=== PATIENT | male | born 1960 | race Caucasian/White ===

== ENCOUNTER → 2017-08-10 | Outpatient (CLI) | payer BC ==
[~2017-08-10] MED LIST: ASPI-9 PO; ATOR20TA66 PO; CALC500T7 PO; LEVOTHYROXINE PO; METO-333 PO; NF-ESOM40C PO; TESTOSTERONE TOP
[2017-08-10 10:20] LABS: ALBUMIN 3.9 GM/DL (3.2-4.5); BILIRUBIN,TOTAL 0.7 MG/DL (0.1-1.0); CALCIUM 9.4 MG/DL (8.5-10.1); CREATININE SERUM 1.46 MG/DL (0.60-1.30); POTASSIUM 4.4 MMOL/L (3.6-5.0); TOTAL PROTEIN 6.7 GM/DL (6.4-8.2)
== END ==
LOC: CARD 08:54
PROVIDERS: ATTEND Internal Medicine Cardiovascular Disease
DX: I25.10 Atherosclerotic heart disease of native coronary artery without angina pectoris (principal); E78.2 Mixed hyperlipidemia; I48.92 Unspecified atrial flutter; I21.4 Non-ST elevation (NSTEMI) myocardial infarction; I34.0 Nonrheumatic mitral (valve) insufficiency
CPT/HCPCS: 36415; 80053; 80061; 84443; 93306

== ENCOUNTER 2018-05-02 06:34 | Observation (INO) | payer BC ==
[~2018-05-02] VITALS: Ht 195.6 cm; Wt 109.3 kg
--- OUTSIDE RECORDS SUMMARY | 2018-05-02 06:39 | XMS REPORT | Continuity of Care Document ---
Author Author [facility] Organization [facility] Address Unknown Phone Unavailable Allergies Active Description Code Type Severity Reaction Onset Reported/Identified Relationship to Patient Clinical Status Yes No Known Drug Allergies [id number] Drug Allergy Mild N/A 10/02/2009 Medications There is no data. Problems Date Dx Coded Attending Type Code Diagnosis Diagnosed By 05/23/2011 Ot 530.85 05/23/2011 Ot 535.40 05/23/2011 Ot 553.3 05/23/2011 Ot V76.51 07/18/2012 Ot 238.4 07/07/2014 SUNNI PEDROZA, JAYLON Paige Ot 238.4 07/07/2014 EMY PEDROZA, ERI Steward Ot 238.4 07/07/2014 EMY PEDROZA, ERI Steward Ot 244.9 07/07/2014 EMY PEDROZA, ERI Steward Ot 257.2 07/07/2014 EMY PEDROZA, ERI Steward Ot 401.9 07/07/2014 EMY PEDROZA, ERI Steward Ot 410.71 07/07/2014 EMY PEDROZA, ERI Steward Ot 414.01 07/07/2014 EMY PEDROZA, ERI Steward Ot 530.81 07/07/2014 EMY PEDROZA, ERI Steward Ot 593.9 07/07/2014 EMY PEDROZA, ERI Steward Ot V10.47 07/07/2014 EMY PEDROZA, ERI Steward Ot V87.41 08/19/2014 Ot 511.9 08/19/2014 Ot 518.0 08/19/2014 Ot 786.05 08/19/2014 OTHER, UNLISTED Ot V58.61 08/19/2014 OTHER, UNLISTED Ot V58.83 08/19/2014 SUNNI PEDROZA, JAYLON Paige Ot 238.4 08/21/2014 Ot 511.9 08/21/2014 Ot 793.19 08/21/2014 Ot V45.89 08/25/2014 OTHER, UNLISTED Ot V58.61 08/25/2014 OTHER, UNLISTED Ot V58.83 08/25/2014 SUNNI PEDROZA, JAYLON D Ot 238.4 08/26/2014 SHEMAR PEDROZA, JUDITH Caban Ot V45.81 08/26/2014 SHEMAR PEDROZA, JUDITH J Ot V57.89 08/27/2014 SHEMAR PEDROZA, JUDITH J Ot V45.81 08/27/2014 SHEMAR PEDROZA, JUDITH J Ot V57.89 08/29/2014 OTHER, UNLISTED Ot V58.61 08/29/2014 OTHER, UNLISTED Ot V58.83 08/29/2014 Ot 511.9 08/29/2014 Ot 793.19 08/29/2014 Ot V45.89 11/24/2014 SHEMAR PEDROZA, JUDITH Caban Ot 427.32 11/29/2014 SHEMAR PEDROZA, JUDITH Caban Ot 272.4 11/29/2014 SHEMAR PEDROZA, JUDITH Caban Ot 414.00 11/29/2014 SHEMAR PEDROZA, JUDITH Caban Ot 427.32 11/29/2014 SHEMAR PEDROZA, JUDITH J Ot 585.9 11/29/2014 SHEMAR PEDROZA, JUDITH J Ot 272.4 11/29/2014 SHEMAR PEDROZA, JUDITH Caban Ot 410.70 11/29/2014 SHEMAR PEDROZA, JUDITH Caban Ot 414.00 11/29/2014 SHEMAR PEDROZA, JUDITH J Ot 427.32 11/29/2014 SHEMAR PEDROZA, JUDITH J Ot 585.9 12/15/2014 SHEMAR PEDROZA, JUDITH J Ot 427.32 12/15/2014 SHEMAR PEDROZA, JUDITH J Ot 427.32 12/16/2014 SHEMAR PEDROZA, JUDITH J Ot 427.32 12/16/2014 SHEMAR PEDROZA, ZACARIASHAR J Ot 427.32 12/16/2014 SHEMAR PEDROZA, JUDITH J Ot 427.32 01/20/2015 SHEMAR PEDROZA, JUDITH J Ot 427.32 02/23/2015 SHEMAR PEDROZA, JUDITH Caban Ot 272.4 02/23/2015 SHEMAR PEDROZA, JUDITH J Ot 305.1 02/23/2015 SHEMAR PEDROZA, JUDITH Caban Ot 410.70 02/23/2015 SHEMAR PEDROZA, JUDITH J Ot 427.32 03/15/2015 SHEMAR PEDROZA, JUDITH J Ot 427.32 ATRIAL FLUTTER 04/01/2015 JUDITH STATON MD Ot 272.4 HYPERLIPIDEMIA NEC/NOS 04/01/2015 JUDITH STATON MD Ot 305.1 TOBACCO USE DISORDER 04/01/2015 JUDITH STATON MD Ot 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,SUBENDO INFARCT,EPISO 04/01/2015 JUDITH STATON MD Ot 427.32 ATRIAL FLUTTER 05/01/2015 EARL JONSE MD Ot K21.9 GASTRO-ESOPHAGEAL REFLUX DISEASE WITHOUT 05/01/2015 EARL JONES MD Ot 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 05/01/2015 EARL JONES MD Ot K31.7 POLYP OF STOMACH AND DUODENUM 05/01/2015 EARL JONES MD Ot K44.9 DIAPHRAGMATIC HERNIA WITHOUT OBSTRUCTION 09/24/2015 Ot 511.9 09/24/2015 Ot 793.19 09/24/2015 Ot V45.89 09/24/2015 JUDITH STATON MD Ot 427.32 09/24/2015 EARL JONES MD Ot Z01.818 10/06/2015 JUDITH STATON MD Ot E78.4 10/06/2015 JUDITH STATON MD Ot F17.200 10/06/2015 JUDITH STATON MD Ot I25.10 10/06/2015 JUDITH STATON MD Ot I48.92 11/12/2015 JUDITH STATON MD Ot E78.4 OTHER HYPERLIPIDEMIA 11/12/2015 JUDITH STATON MD Ot F17.200 NICOTINE DEPENDENCE, UNSPECIFIED, UNCOMP 11/12/2015 JUDITH STATON MD Ot I25.10 ATHSCL HEART DISEASE OF [place] CORONARY 11/12/2015 JUDITH STATON MD Ot I48.92 UNSPECIFIED ATRIAL FLUTTER 05/18/2016 JUDITH STATON MD Ot E78.4 OTHER HYPERLIPIDEMIA 05/18/2016 JUDITH STATON MD Ot F17.200 NICOTINE DEPENDENCE, UNSPECIFIED, UNCOMP 05/18/2016 JUDITH STATON MD Ot I25.10 ATHSCL HEART DISEASE OF [place] CORONARY 05/18/2016 JUDITH STATON MD Ot I48.92 UNSPECIFIED ATRIAL FLUTTER 05/19/2016 JUDITH STATON MD Ot E78.4 OTHER HYPERLIPIDEMIA 05/19/2016 JUDITH STATON MD Ot F17.200 NICOTINE DEPENDENCE, UNSPECIFIED, UNCOMP 05/19/2016 JUDITH STATON MD Ot I21.4 NON-ST ELEVATION (NSTEMI) MYOCARDIAL INF 05/19/2016 JUDITH STATON MD Ot I31.3 PERICARDIAL EFFUSION (NONINFLAMMATORY) 05/19/2016 JUDITH STATON MD Ot I48.92 UNSPECIFIED ATRIAL FLUTTER 05/19/2016 JUDITH STATON MD Ot E78.4 OTHER HYPERLIPIDEMIA 05/19/2016 JUDITH STATON MD Ot F17.200 NICOTINE DEPENDENCE, UNSPECIFIED, UNCOMP 05/19/2016 JUDITH STATON MD Ot I21.4 NON-ST ELEVATION (NSTEMI) MYOCARDIAL INF 05/19/2016 JUDITH STATON MD Ot I31.3 PERICARDIAL EFFUSION (NONINFLAMMATORY) 05/19/2016 JUDITH STATON MD Ot I48.92 UNSPECIFIED ATRIAL FLUTTER 06/01/2016 JUDITH STATON MD Ot E78.4 OTHER HYPERLIPIDEMIA 06/01/2016 JUDITH STATON MD Ot F17.200 NICOTINE DEPENDENCE, UNSPECIFIED, UNCOMP 06/01/2016 JUDITH STATON MD Ot I21.4 NON-ST ELEVATION (NSTEMI) MYOCARDIAL INF 06/01/2016 JUDITH STATON MD Ot I31.3 PERICARDIAL EFFUSION (NONINFLAMMATORY) 06/01/2016 JUDITH STATON MD Ot I48.92 UNSPECIFIED ATRIAL FLUTTER 06/15/2016 JUDITH STATON MD Ot E78.4 OTHER HYPERLIPIDEMIA 06/15/2016 JUDITH STATON MD Ot F17.200 NICOTINE DEPENDENCE, UNSPECIFIED, UNCOMP 06/15/2016 JUDITH STATON MD Ot I25.10 ATHSCL HEART DISEASE OF [place] CORONARY 06/15/2016 JUDITH STATON MD Ot I48.92 UNSPECIFIED ATRIAL FLUTTER 06/15/2016 JUDITH STATON MD Ot E78.4 OTHER HYPERLIPIDEMIA 06/15/2016 JUDITH STATON MD Ot F17.200 NICOTINE DEPENDENCE, UNSPECIFIED, UNCOMP 06/15/2016 JUDITH STATON MD Ot I21.4 NON-ST ELEVATION (NSTEMI) MYOCARDIAL INF 06/15/2016 JUDITH STATON MD Ot I31.3 PERICARDIAL EFFUSION (NONINFLAMMATORY) 06/15/2016 JUDITH STATON MD Ot I48.92 UNSPECIFIED ATRIAL FLUTTER 06/15/2016 JUDITH STATON MD Ot E78.4 OTHER HYPERLIPIDEMIA 06/15/2016 JUDITH STATON MD Ot F17.200 NICOTINE DEPENDENCE, UNSPECIFIED, UNCOMP 06/15/2016 JUDITH STATON MD Ot I25.10 ATHSCL HEART DISEASE OF [place] CORONARY 06/15/2016 JUDITH STATON MD Ot I48.92 UNSPECIFIED ATRIAL FLUTTER 06/16/2016 JUDITH STATON MD Ot E78.4 OTHER HYPERLIPIDEMIA 06/16/2016 JUDITH STATON MD Ot F17.200 NICOTINE DEPENDENCE, UNSPECIFIED, UNCOMP 06/16/2016 JUDITH STATON MD Ot I25.10 ATHSCL HEART DISEASE OF [place] CORONARY 06/16/2016 JUDITH STATON MD Ot I48.92 UNSPECIFIED ATRIAL FLUTTER 06/16/2016 JUDITH STATON MD Ot E78.4 OTHER HYPERLIPIDEMIA 06/16/2016 JUDITH STATON MD Ot F17.200 NICOTINE DEPENDENCE, UNSPECIFIED, UNCOMP 06/16/2016 JUDITH STATON MD Ot I21.4 NON-ST ELEVATION (NSTEMI) MYOCARDIAL INF 06/16/2016 JUDITH STATON MD Ot I31.3 PERICARDIAL EFFUSION (NONINFLAMMATORY) 06/16/2016 JUDITH STATON MD Ot I48.92 UNSPECIFIED ATRIAL FLUTTER 06/16/2016 Ot 511.9 PLEURAL EFFUSION NOS 06/16/2016 Ot 793.19 OTHER NONSPECIFIC ABNORMAL FINDING OF [place] 06/16/2016 Ot V45.89 POSTSURGICAL STATES NEC 06/16/2016 JUDITH STATON MD Ot 427.32 06/16/2016 ROBERT PEDROZA, EARL Paige Ot Z01.818 ENCOUNTER FOR OTHER PREPROCEDURAL EXAMIN 06/16/2016 JUDITH STATON MD Ot E78.4 OTHER HYPERLIPIDEMIA 06/16/2016 JUDITH STATON MD Ot F17.200 NICOTINE DEPENDENCE, UNSPECIFIED, UNCOMP 06/16/2016 JUDITH STATON MD Ot I21.4 NON-ST ELEVATION (NSTEMI) MYOCARDIAL INF 06/16/2016 JUDITH STATON MD Ot I31.3 PERICARDIAL EFFUSION (NONINFLAMMATORY) 06/16/2016 JUDITH STATON MD Ot I48.92 UNSPECIFIED ATRIAL FLUTTER 06/29/2016 JUDITH STATON MD Ot E78.4 OTHER HYPERLIPIDEMIA 06/29/2016 JUDITH STATON MD Ot F17.200 NICOTINE DEPENDENCE, UNSPECIFIED, UNCOMP 06/29/2016 JUDITH STATON MD Ot I21.4 NON-ST ELEVATION (NSTEMI) MYOCARDIAL INF 06/29/2016 JUDITH STATON MD Ot I31.3 PERICARDIAL EFFUSION (NONINFLAMMATORY) 06/29/2016 JUDITH STATON MD Ot I48.92 UNSPECIFIED ATRIAL FLUTTER 08/03/2017 Ot 511.9 PLEURAL EFFUSION NOS 08/03/2017 Ot 793.19 OTHER NONSPECIFIC ABNORMAL FINDING OF [place] 08/03/2017 Ot V45.89 POSTSURGICAL STATES NEC 08/03/2017 JUDITH STATON MD Ot 427.32 08/03/2017 ROBERT PEDROZA, EARL Paige Ot Z01.818 ENCOUNTER FOR OTHER PREPROCEDURAL EXAMIN 08/03/2017 JUDITH STATON MD Ot E78.4 OTHER HYPERLIPIDEMIA 08/03/2017 JUDITH STATON MD Ot F17.200 NICOTINE DEPENDENCE, UNSPECIFIED, UNCOMP 08/03/2017 JUDITH STATON MD Ot I21.4 NON-ST ELEVATION (NSTEMI) MYOCARDIAL INF 08/03/2017 JUDITH STATON MD Ot I31.3 PERICARDIAL EFFUSION (NONINFLAMMATORY) 08/03/2017 JUDITH STATON MD Ot I48.92 UNSPECIFIED ATRIAL FLUTTER 08/23/2017 JUDITH STATON MD Ot E78.2 MIXED HYPERLIPIDEMIA 08/23/2017 JUDITH STATON MD Ot I21.4 NON-ST ELEVATION (NSTEMI) MYOCARDIAL INF 08/23/2017 JUDITH STATON MD Ot I25.10 ATHSCL HEART DISEASE OF [place] CORONARY 08/23/2017 JUDITH STATON MD Ot I34.0 NONRHEUMATIC MITRAL (VALVE) INSUFFICIENC 08/23/2017 JUDITH STATON MD Ot I48.92 UNSPECIFIED ATRIAL FLUTTER 12/12/2017 JUDITH STATON MD, Ot E78.2 MIXED HYPERLIPIDEMIA 12/12/2017 JUDITH STATON MD Ot I21.4 NON-ST ELEVATION (NSTEMI) MYOCARDIAL INF 12/12/2017 JUDITH STATON MD Ot I25.10 ATHSCL HEART DISEASE OF [place] CORONARY 12/12/2017 JUDITH STATON MD Ot I34.0 NONRHEUMATIC MITRAL (VALVE) INSUFFICIENC 12/12/2017 JUDITH STATON MD, Ot I48.92 UNSPECIFIED ATRIAL FLUTTER 12/12/2017 JUDITH STATON MD, Ot E78.2 MIXED HYPERLIPIDEMIA 12/12/2017 JUDITH STATON MD Ot I21.4 NON-ST ELEVATION (NSTEMI) MYOCARDIAL INF 12/12/2017 JUDITH STATON MD Ot I25.10 ATHSCL HEART DISEASE OF [place] CORONARY 12/12/2017 JUDITH STATON MD Ot I34.0 NONRHEUMATIC MITRAL (VALVE) INSUFFICIENC 12/12/2017 JUDITH STATON MD, Ot I48.92 UNSPECIFIED ATRIAL FLUTTER Procedures There is no data. Results Test Result Range Comprehensive metabolic panel - 08/10/17 09:59 Serum or plasma sodium measurement (moles/volume) 140 mmol/L 135-145 Serum or plasma potassium measurement (moles/volume) 4.4 mmol/L 3.6-5.0 Serum or plasma chloride measurement (moles/volume) 105 mmol/L 98-107 Carbon dioxide 27 mmol/L 21-32 Serum or plasma anion gap determination (moles/volume) 8 mmol/L 5-14 Serum or plasma urea nitrogen measurement (mass/volume) 17 mg/dL 7-18 Serum or plasma creatinine measurement (mass/volume) 1.46 mg/dL 0.60-1.30 Serum or plasma urea nitrogen/creatinine mass ratio 12 NRG Serum or plasma creatinine measurement with calculation of estimated glomerular filtration rate 50 NRG Serum or plasma glucose measurement (mass/volume) 104 mg/dL 70-105 Serum or plasma calcium measurement (mass/volume) 9.4 mg/dL 8.5-10.1 Serum or plasma total bilirubin measurement (mass/volume) 0.7 mg/dL 0.1-1.0 Serum or plasma alkaline phosphatase measurement (enzymatic activity/volume) 51 U/L 40-136 Serum or plasma aspartate aminotransferase measurement (enzymatic activity/ volume) 24 U/L 5-34 Serum or plasma alanine aminotransferase measurement (enzymatic activity/volume ) 22 U/L 0-55 Serum or plasma protein measurement (mass/volume) 6.7 g/dL 6.4-8.2 Serum or plasma albumin measurement (mass/volume) 3.9 g/dL 3.2-4.5 Lipid 1996 panel - 08/10/17 09:59 Serum or plasma triglyceride measurement (mass/volume) 143 mg/dL <150 Serum or plasma cholesterol measurement (mass/volume) 235 mg/dL < 200 Serum or plasma cholesterol in HDL measurement (mass/volume) 37 mg/ dL 40-60 Cholesterol in LDL [mass/volume] in serum or plasma by direct assay 181 mg/dL 1-129 Serum or plasma cholesterol in VLDL measurement (mass/volume) 29 mg/ dL 5-40 THYROID STIMULATING HORMONE - 08/10/17 09:59 THYROID STIMULATING HORMONE 1.63 u[iU]/mL 0.35-4.94 Encounters ACCT No. Visit Date/Time Discharge Status Pt. Type Provider Facility Loc./Unit Complaint [id number] 08/10/2017 08:54:00 08/10/2017 23:59:59 CLS Outpatient JUDITH STATON MD [facility] CARD I25.10,E78.2,I48.92, I21.4 [id number] 06/16/2016 09:09:00 06/16/2016 23:59:59 CLS Outpatient JUDITH STATON MD [facility] LAB ATRIAL FLUTTER, HYPERLIPIDEMIA [id number] 05/18/2016 12:22:00 05/18/2016 23:59:59 CLS Outpatient JUDITH STATON MD [facility] CARD ATRIAL FLUTTER,HLP, PERICARDIAL EFFUSION [id number] 09/24/2015 07:53:00 09/24/2015 23:59:59 CLS Outpatient JUDITH STATON MD [facility] CARD CAD,AFLUTTER, HLP, TOBACCO USE [id number] 05/01/2015 07:33:00 05/01/2015 09:30:00 DIS Outpatient EARL JONES MD [facility] BARRETTS ESOPHAGUS [id number] 04/30/2015 05:51:00 04/30/2015 23:59:59 CLS Outpatient EARL JONES MD [facility] PREOP BARRETTS ESOPHAGUS [id number] 02/19/2015 09:57:00 04/01/2015 00:01:00 DIS Outpatient JUDITH STATON MD [facility] CARD AFIB,NONSTEMI [id number] 03/16/2015 00:09:00 03/16/2015 23:59:59 CLS Preadmit JUDITH STATON MD [facility] LAB ATRIAL FLUTTER [id number] 01/15/2015 08:46:00 03/15/2015 00:01:00 DIS Outpatient JUDITH STATON MD [facility] LAB ATRIAL FLUTTER [id number] 11/20/2014 10:41:00 11/24/2014 00:01:00 DIS Outpatient JUDITH STATON MD [facility] LAB [id number] 11/05/2014 13:42:00 11/05/2014 23:59:59 CLS Outpatient JUDITH STATON MD [facility] CARD [id number] 10/27/2014 10:19:00 10/27/2014 23:59:59 CLS Outpatient JUDITH STATON MD [facility] LAB [id number] 10/15/2014 11:45:00 10/17/2014 12:22:00 DIS Outpatient JUDITH STATON MD [facility] [id number] 08/14/2014 13:32:00 08/14/2014 23:59:59 CLS Outpatient OTHER, UNLISTED [facility] [id number] 07/07/2014 15:45:00 07/07/2014 16:53:00 DIS Inpatient ERI QUEVEDO MD [facility] ICU [id number] 11/07/2012 12:28:00 11/07/2012 23:59:59 CLS Outpatient JAYLON MOELLER MD [facility] [id number] 08/26/2014 10:18:00 Document Registration [id number] 08/20/2014 09:04:00 Document Registration [id number] 08/19/2014 18:54:00 Document Registration [id number] 08/19/2014 16:06:00 Document Registration [id number] 07/07/2014 14:00:00 Document Registration [id number] 07/18/2012 13:57:00 Document Registration [id number] 05/23/2011 07:00:00 Document Registration
[2018-05-02] MEDS ORDERED: KETOROLAC 30 MG/ML VIAL IVP STA (06:58)
--- NOTE | 2018-05-02 07:12 | ED General ---
General Chief Complaint: Upper Extremity Stated Complaint: RT ARM PAIN Nursing Triage Note: AMBULATORY TO ED WITH C/O RIGHT ARM PAIN FOR APPROX 1 MONTH. DESCRIBES SHARP WITH NUMBNESS AND TINGLING FROM SHOULDER DOWN TO HAND. Nursing Sepsis Screen: No Definite Risk Source of Information: Patient, Family Exam Limitations: No Limitations History of Present Illness Date Seen by Provider: May 02, 2018 Time Seen by Provider: 06:39 Initial Comments Here with report of pain to the right arm and shoulder with tingling down to his hand. States that this has been intermittent for the last month but significantly worse today. Does report that the pain seems to be exacerbated by neck position and movement. Also has some pain to his right calf with some swelling of the leg on the right. He states the swelling will come and go sometimes as this is where he had pain prescription for his quadruple bypass. That occurred a few years ago after a heart attack. Otherwise healthy and fairly active. Did report canoeing this weekend and did not have problems with paddling. He is an telephonic nurse. Denies weakness in his hands currently but does feel like he has lost strength especially with abduction and external rotation of the arm on the right. States when his hand and arm goes numb that it is the whole arm and cannot localize it to medial or lateral aspect or dorsal or palmar aspect. Timing/Duration: Constant (this morning), Getting Worse (over the last month), Intermittent (over the last month) Severity: Moderate Associated Systoms: No Chest Pain, No Cough, No Diaphoresis, No Fever/Chills, No Nausea/Vomiting, No Shortness of Air; Weakness Allergies and Home Medications Allergies Coded Allergies: No Known Drug Allergies (Unverified , 10/02/09) Home Medications Aspirin/Calcium Carbonate/Mag 325 Mg Tablet, 325 MG PO DAILY, (Reported) Atorvastatin Calcium 20 Mg Tablet, 20 MG PO BID, (Reported) Calcium Carbonate Unknown Strength Tab.chew, 200 MG PO PRN, (Reported) Esomeprazole Mag Trihydrate 40 Mg Capsule.dr, 40 MG PO HS, (Reported) Methylprednisolone 4 Mg Tab.ds.pk, 4 MG PO UD PER DOSE PACK INSTRUCTIONS Prescribed by: BRAXTON ORR on 05/02/18 1139 Metoprolol Tartrate 25 Mg Tablet, 6 MG PO BID, (Reported) [Levothyroxine] , 88 MCG PO HS, (Reported) [Testosterone] , TOP Q DAY, (Reported) Patient Home Medication List Home Medication List Reviewed: Yes Review of Systems Review of Systems Constitutional: see HPI; No chills, No fever EENTM: no symptoms reported Respiratory: No short of breath, No wheezing Cardiovascular: No chest pain; edema, Hx of Intervention; No palpitations Gastrointestinal: No abdominal pain, No nausea, No vomiting Genitourinary: no symptoms reported Musculoskeletal: see HPI, joint pain, muscle pain, muscle weakness, neck pain Skin: no symptoms reported Psychiatric/Neurological: See HPI, Numbness, Tingling, Weakness All Other Systems Reviewed Negative Unless Noted: Yes Past Kkosyks-Ghcqxy-Rwugzp Hx Past Med/Social Hx: Reviewed Nursing Past Med/Soc Hx Patient Social History Alcohol Use: Denies Use Recreational Drug Use: No Smoking Status: Never a Smoker Recent Foreign Travel: No Contact w/Someone Who Travel: No Recent Infectious Disease Expo: No Recent Hopitalizations: No Immunizations Up To Date Tetanus Booster (TDap): Unknown Seasonal Allergies Seasonal Allergies: No Past Medical History Surgeries: Yes (CARDIOVERSION, PERICARDIAL WINDOW, THORACENTESIS) Cardiac, CABG Respiratory: No Cardiac: Yes Coronary Artery Disease, Heart Attack, High Cholesterol Neurological: No Neuropathy Reproductive Disorders: No Gastrointestinal: Yes Gastroesophageal Reflux, Chronic Constipation Musculoskeletal: No Endocrine: Yes Hypothyroidsim Cancer: Yes Testicular Psychosocial: No Integumentary: No Blood Disorders: No Family Medical History Reviewed Nursing Family Hx No Pertinent Family Hx Physical Exam Vital Signs Vital Signs - First Documented 05/02/18 06:39 Pulse 66 Resp 17 B/P (MAP) 171/125 (140) Capillary Refill : Less Than 3 Seconds Height, Weight, BMI Height: 6'5.00" Weight: 241lbs. 0.0oz. [id number]; 28.6 BMI Method:Stated General Appearance: WD/WN, Mild Distress HEENT: PERRL/EOMI, Pharynx Normal Neck: Limited Range of Motion (extension increases pain.), Tender Lateral, Other (pain improved with head in the forward flexion, head down position. Pain exacerbated by head and neck rearward position. Axial loading does increase pain somewhat.) Respiratory: Lungs Clear, Normal Breath Sounds Cardiovascular: Regular Rate, Rhythm, No Murmur Gastrointestinal: Non Tender, Soft Back: Normal Inspection, No CVA Tenderness, No Vertebral Tenderness Extremity: Normal Range of Motion, Non Tender, Calf Tenderness (mild right posterior where vein stripping was from CABG), Pedal Edema (1+ edema to the right lower extremity), Other (normal range of motion of bilateral upper extremities and hands with equal strength bilateral) Neurologic/Psychiatric: Alert, Oriented x3, No Motor/Sensory Deficits, Other ( 5 out of 5 strength to bilateral upper extremities including window and door installer strength, push and pull.) Skin: Normal Color, Warm/Dry Progress/Results/Core Measures Suspected Sepsis Recent Fever Within 48 Hours: No Infection Criteria Present: None New/Unexplained Altered Menta: No Sepsis Screen: No Definite Risk SIRS Temperature: Pulse: 66 Respiratory Rate: 17 Laboratory Tests 05/02/18 07:10: White Blood Count 6.1 Blood Pressure 171 /125 Mean: 140 Laboratory Tests 05/02/18 07:10: Creatinine 1.32H, INR Comment 1.0, Platelet Count 175, Total Bilirubin 0.6 Results/Orders Lab Results Laboratory Tests Test 05/02/18 07:10 05/02/18 09:36 05/02/18 09:46 Range/Units White Blood Count 6.1 4.3-11.0 10^3/uL Red Blood Count 5.23 4.35-5.85 10^6/uL Hemoglobin 16.1 13.3-17.7 G/DL Hematocrit 47 40-54 % Mean Corpuscular Volume 90 80-99 FL Mean Corpuscular Hemoglobin 31 25-34 PG Mean Corpuscular Hemoglobin Concent 34 32-36 G/DL Red Cell Distribution Width 13.3 10.0-14.5 % Platelet Count 175 130-400 10^3/uL Mean Platelet Volume 10.1 7.4-10.4 FL Neutrophils (%) (Auto) 59 42-75 % Lymphocytes (%) (Auto) 29 12-44 % Monocytes (%) (Auto) 9 0-12 % Eosinophils (%) (Auto) 3 0-10 % Basophils (%) (Auto) 1 0-10 % Neutrophils # (Auto) 3.6 1.8-7.8 X 10^3 Lymphocytes # (Auto) 1.8 1.0-4.0 X 10^3 Monocytes # (Auto) 0.5 0.0-1.0 X 10^3 Eosinophils # (Auto) 0.2 0.0-0.3 10^3/uL Basophils # (Auto) 0.0 0.0-0.1 10^3/uL Prothrombin Time 13.0 12.2-14.7 SEC INR Comment 1.0 0.8-1.4 Activated Partial Thromboplast Time 25 24-35 SEC D-Dimer 0.43 0.00-0.49 UG/ML Sodium Level 141 135-145 MMOL/L Potassium Level 4.2 3.6-5.0 MMOL/L Chloride Level 109 H 98-107 MMOL/L Carbon Dioxide Level 23 21-32 MMOL/L Anion Gap 9 5-14 MMOL/L Blood Urea Nitrogen 21 H 7-18 MG/DL Creatinine 1.32 H 0.60-1.30 MG/DL Estimat Glomerular Filtration Rate 56 BUN/Creatinine Ratio 16 Glucose Level 115 H 70-105 MG/DL Calcium Level 9.1 8.5-10.1 MG/DL Corrected Calcium 9.0 8.5-10.1 MG/DL Magnesium Level 2.1 1.8-2.4 MG/DL Total Bilirubin 0.6 0.1-1.0 MG/DL Aspartate Amino Transf (AST/SGOT) 34 5-34 U/L Alanine Aminotransferase (ALT/SGPT) 35 0-55 U/L Alkaline Phosphatase 51 40-136 U/L Myoglobin 217.8 H 337.4 H 10.0-92.0 NG/ML Troponin I < 0.30 < 0.30 <0.30 NG/ML Total Protein 6.7 6.4-8.2 GM/DL Albumin 4.1 3.2-4.5 GM/DL Total Creatine Kinase 407 H 30-200 U/L My Orders Orders - BRAXTON ORR MD Cbc With Automated Diff (05/02/18 06:58) Magnesium (05/02/18 06:58) Chest 1 View, Ap/Pa Only (05/02/18 06:58) Ekg Tracing (05/02/18 06:58) Cardiac Profile 1 (05/02/18 06:58) Comprehensive Metabolic Panel (05/02/18 06:58) Myoglobin Serum (05/02/18 06:58) Protime With Inr (05/02/18 06:58) Partial Thromboplastin Time (05/02/18 06:58) O2 (05/02/18 06:58) Monitor-Rhythm Ecg Trace Only (05/02/18 06:58) Lipid Panel (05/03/18 06:00) Saline Lock/Iv-Start (05/02/18 06:58) Fibrin Degradation Products (05/02/18 06:58) Ct Cervical Spine Wo (05/02/18 06:58) Ketorolac Injection (Toradol Injection) (05/02/18 06:58) Saline Lock/Iv-Start (05/02/18 07:56) Ns Iv 1000 Ml (Sodium Chloride 0.9%) (05/02/18 07:56) Fentanyl Injection (Sublimaze Injection (05/02/18 08:14) Dexamethasone Injection (Decadron Inject (05/02/18 08:15) Mri Cervical Spine W/O Contras (05/02/18 08:25) Troponin I (05/02/18 09:24) Myoglobin Serum (05/02/18 09:24) Saline Lock/Iv-Start (05/02/18 11:10) Ns Iv 1000 Ml (Sodium Chloride 0.9%) (05/02/18 11:10) Creatine Kinase (05/02/18 11:10) Lisinopril Tablet (Zestril Tablet) (05/02/18 11:15) Prednisone Tablet (Deltasone Tablet) (05/02/18 11:30) Medications Given in ED Current Medications Medications Dose Ordered Sig/Peyton Route Start Time Stop Time Status Last Admin Dose Admin Dexamethasone Sodium Phosphate 10 mg ONCE ONCE IV 05/02/18 08:15 05/02/18 08:16 DC 05/02/18 08:19 10 MG Lisinopril 10 mg ONCE ONCE PO 05/02/18 11:15 05/02/18 11:16 DC 05/02/18 11:27 10 MG Sodium Chloride 1,000 ml @ 0 mls/hr Q0M ONCE IV 05/02/18 07:56 05/02/18 07:57 DC 05/02/18 08:02 1,000 MLS/HR Sodium Chloride 1,000 ml @ 0 mls/hr Q0M ONCE IV 05/02/18 11:10 05/02/18 11:12 DC 05/02/18 12:02 1,000 MLS/HR Vital Signs/I&O 05/02/18 06:39 Pulse 66 Resp 17 B/P (MAP) 171/125 (140) Capillary Refill : Less Than 3 Seconds Blood Pressure Mean: 140 Progress Note : Progress Note Seen and evaluated. IV, labs, EKG and chest x-ray ordered. Patient has complicated history with previous heart attack and multivessel bypass with right shoulder pain that seems to be intermittent. We will evaluate and rule out cardiac cause and I will add d-dimer to evaluate for possibility of blood clot. Pain seems to have radicular origin in the neck and we will get CT scan of the C-spine as well. Toradol 30 mg IV ordered. All of this was discussed with the patient and family who agree and does address their concerns as well. 0820: C-spine results noted. I did discuss the case with Dr. MUNGUIA due to concerns for radiculopathy. We discussed MRI and he states that that would be very beneficial given the CT findings. MRI C-spine without contrast ordered. Patient did receive fentanyl 50 g IV and Decadron 10 mg IV for pain and the fentanyl is definitely helping with the pain at this point. 0845: MRI did have opening and patient is going for evaluation now. Pending results. 0952: Results noted in discussed with the patient. We have ordered repeat troponin and myoglobin. I have discussed the case with Dr. MUNGUIA and he would like to see the patient in office at approximately 1 p.m. today down in [place]. Patient and family are in agreement with this. Dr. MUNGUIA was able to review the MRI and agrees that there are significant findings in the C5 through C7 level. 1104: Blood pressure has elevated and myoglobin is increasingly elevated. Unsure of the cause of elevated myoglobin. Patient is having less pain but decreased movement of the arm in the abduction motion. Due to the constellation of symptoms and findings, further evaluation and monitoring as well as hydration is appropriate. I did discuss the case with Dr. Sampson and he is recommending lisinopril 10 mg by mouth now and he will see the patient in consult. 1107: I did discuss the case with Dr. Moreno and she accepts patient for admission, observation status with Dr. Sampson on consult. I did rediscuss the case with Dr. MUNGUIA afterwards and he can see the patient on Monday if the patient is discharged from the hospital and does recommend the Medrol Dosepak to be continued outpatient. We will initiate prednisone currently and patient can take the Medrol Dosepak when discharged. Prednisone 40 mg by mouth ordered as well as lisinopril 10 mg by mouth. Admit, observation status. Patient and family agree with plan. ECG Initial ECG Impression Date: May 02, 2018 Initial ECG Impression Time: 06:59 Initial ECG Rate: 56 Initial ECG Rhythm: Normal Sinus Comment Sinus rhythm with first degree AV block. 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 This is unchanged from previous of 19 August 2004. No evidence of ST elevation VA. Normal axis. Interpreted by me. Diagnostic Imaging Diagonstic Imaging: Xray Plain Films/CT/US/NM/MRI: chest Comments VIA [facility], [place] NAME: MARTHA VALDEZ MED REC#: [id number] PT STATUS: REG ER : 1960 PHYSICIAN: BRAXTON ORR MD ADMIT DATE: 05/02/18/ER Draft Date of Exam:05/02/18 CHEST 1 VIEW, AP/PA ONLY INDICATION: Neck pain which radiates into the right upper extremity. PA view of the chest is obtained with comparison made to study of 08/26/2014. FINDINGS: Overall heart size and pulmonary vascularity are within normal limits. There is air trapping, bilaterally. No pneumothorax or consolidation is seen. There is no definite pleural fluid. Surgical changes are again noted in the mediastinum. Short tubular object projects over the upper left chest just below the clavicle similar to previous study. There is hypertrophy of the first sternocostal joints which limits evaluation of underlying lung. IMPRESSION: Air trapping is likely due to emphysema without evidence of acute abnormality seen in the thorax. If there is concern for upper lung pathology, apical lordotic view would be of use. Dictated on workstation # [id number] Dict: 05/02/18 0800 Trans: 05/02/18 0804 [id number] Interpreted by: PRANAV AGUAYO MD Electronically signed by: Reviewed: Reviewed by Me Diagonstic Imaging: CT Plain Films/CT/US/NM/MRI: c-spine Comments NAME: MARTHA VALDEZ MED REC#: [id number] PT STATUS: REG ER : 1960 PHYSICIAN: BRAXTON ORR MD ADMIT DATE: 05/02/18/ER Draft Date of Exam:05/02/18 CT CERVICAL SPINE WO INDICATION: Neck pain with right arm pain. CT cervical spine obtained with axial slices without contrast and sagittal and coronal reconstructions. There is no evidence of cervical spine fracture. There is no subluxation or malalignment. There is multilevel degenerative change. At C2-3, the canal and neuroforamina are widely patent. At C3-4, there is mild facet degenerative change. The canal and neuroforamina appear widely patent, however. At C4-5, there is prominent facet joint degenerative change on the left side with some left-sided neuroforaminal narrowing. There is no significant right-sided neuroforaminal narrowing or canal narrowing. At C5-C6, there is disc space narrowing and posterior osteophyte formation. There is mild bilateral neuroforamina narrowing without significant canal stenosis. At C6-7, there is posterior osteophyte formation and disc space narrowing. There is bilateral neuroforaminal narrowing, right greater than left, due to osteophyte formation. There does not appear to be significant canal stenosis. At C7-T1, the canal and neuroforamina are widely patent. IMPRESSION: Multilevel degenerative changes cervical spine as described above level by level. There is no acute fracture or subluxation. Degenerative findings are most prominent at the C5-6 and C6-7 levels as above. Dictated on workstation # [id number] Dict: 05/02/18 0759 Trans: 05/02/18 [id number] [id number] Interpreted by: SANDRA HENRY MD Electronically signed by: Reviewed: Reviewed by Me Diagonstic Imaging: MRI Plain Films/CT/US/NM/MRI: c-spine Comments NAME: MARTHA VALDEZ [facility] REC#: [id number] PT STATUS: REG ER : 1960 PHYSICIAN: BRAXTON ORR MD ADMIT DATE: 05/02/18/ER Draft Date of Exam:05/02/18 MRI CERVICAL SPINE W/O CONTRAS PROCEDURE: MR imaging cervical spine without contrast. TECHNIQUE: Multiplanar/multisequence MR imaging of the cervical spine was performed without contrast. INDICATION: Neck pain. Right arm pain, numbness, and tingling. Recent exacerbation. COMPARISON: CT cervical spine from earlier this same day. FINDINGS: Evaluation of the static alignment demonstrates slight grade 1 anterolisthesis of C4 on C5 and slight grade 1 retrolisthesis of C5 on C6. There is no evidence of jumped facets. The vertebral body heights are maintained. There is no evidence of acute fracture. There are degenerative changes, particularly involving the C5-6 and C6-C7 levels. There is associated Modic type II degenerative marrow type signal. Note is also made of multilevel intervertebral disc height loss. The cervical cord is unremarkable. There is no evidence of cord edema. No abnormal intrathecal filling defects are seen. The pre and paravertebral soft tissue structures are unremarkable. The included portions of the posterior fossa show no additional acute abnormalities. Axial images demonstrate the following: C2-C3: There is no large disc bulge or focal protrusion. There is no significant spinal canal or neuroforaminal stenosis. C3-C4: There is mild bilateral uncovertebral hypertrophy and slight broad-based posterior disc bulge. As a result, there is mild narrowing of the spinal canal and bilateral neuroforamen. C4-C5: There is bilateral uncovertebral hypertrophy. There appears to be subtle small central posterior disc protrusion. As a result, there is minimal narrowing of the spinal canal and mild narrowing of the bilateral neuroforamen. C6-C7: There is bilateral uncovertebral hypertrophy with broad-based posterior disc/osteophyte complex formation. There is also mild bilateral facet arthropathy and ligamentum flavum laxity. As a result, there is mild narrowing of the spinal canal. There is also moderate to severe narrowing of the right neuroforamen and moderate narrowing on the left. C6-C7: There is uncovertebral hypertrophy with a broad-based posterior disc bulge. There is also bilateral ligamentum flavum laxity. As a result, there is mild narrowing of the spinal canal. There is also moderate stenosis of the left neuroforamen and moderate to severe stenosis on the right. C7-T1: There is no large disc bulge or focal protrusion. There is no significant spinal canal or neuroforaminal stenosis. IMPRESSION: 1. Multilevel degenerative changes of the cervical spine, greatest at the C5-C6 and C6-C7 levels. 2. No acute fracture or dislocation. Dictated on workstation # [id number] Dict: 05/02/18928 Trans: 05/02/1838 [id number] Interpreted by: YANNI SWEENEY MD Electronically signed by: Departure Communication (Admissions) Time/Spoke to Admitting Phy: 11:07 Time/Spoke to Consulting Phy: 11:04 Impression Primary Impression: Cervical radiculopathy at C6 Additional Impressions: Cervical radiculopathy at C7 Cervical radiculopathy at C5 Uncontrolled hypertension Elevated myoglobin level Disposition: ADMITTED INPATIENT Condition: Stable Admissions Decision to Admit Reason: Admit from ER (General) Decision to Admit/Date: May 02, 2018 Time/Decision to Admit Time: 11:04 Departure-Patient Inst. Decision time for Depature: 10:16 Referrals: GEOFFREY MUNGUIA MD, RICK D MD (PCP/Family) Primary Care Physician Patient Instructions: Radiculopathy (DC) Add. Discharge Instructions: All discharge instructions reviewed with patient and/or family. Voiced understanding. Follow-up with Dr. Munguia today at 1 p.m. at the [facility]. Take medications as directed. Return for worse pain, weakness, numbness or other concerns as needed. Scripts Methylprednisolone (Medrol) 4 Mg Tab.ds.pk 4 MG PO UD for 6 Days, #21 PKG PER DOSE PACK INSTRUCTIONS Prov: BRAXTON ORR MD 05/02/18 Copy Copies To 1: JAYLON MOELLER MD Copies To 2: GEOFFREY MUNGUIA MD, TIMOTHY D MD May 02, 2018 07:12
[2018-05-02 07:16] LABS: BASOPHILS % (AUTO) 1 % (0-10); EOSINOPHILS # (AUTO) 0.2 10^3/uL (0.0-0.3); EOSINOPHILS % (AUTO) 3 % (0-10); HEMATOCRIT 47 % (40-54); HEMOGLOBIN 16.1 G/DL (13.3-17.7); LYMPHOCYTES # (AUTO) 1.8 X 10^3 (1.0-4.0); LYMPHOCYTES % (AUTO) 29 % (12-44); MEAN CORPUSCULAR HEMOGLOBIN 31 PG (25-34); MEAN CORPUSCULAR HGB CONC 34 G/DL (32-36); MEAN CORPUSCULAR VOLUME 90 FL (80-99); MEAN PLATELET VOLUME 10.1 FL (7.4-10.4); MONOCYTES # (AUTO) 0.5 X 10^3 (0.0-1.0); MONOCYTES % (AUTO) 9 % (0-12); NEUTROPHILS # (AUTO) 3.6 X 10^3 (1.8-7.8); NEUTROPHILS % (AUTO) 59 % (42-75); PLATELET COUNT 175 10^3/uL (130-400); RED BLOOD COUNT 5.23 10^6/uL (4.35-5.85); RED CELL DISTRIBUTION WIDTH 13.3 % (10.0-14.5); WHITE BLOOD COUNT 6.1 10^3/uL (4.3-11.0)
[2018-05-02 07:34] LABS: ALANINE AMINOTRANSFERASE 35 U/L (0-55); ALBUMIN 4.1 GM/DL (3.2-4.5); ALKALINE PHOSPHATASE 51 U/L (40-136); BILIRUBIN,TOTAL 0.6 MG/DL (0.1-1.0); BUN/CREATININE RATIO 16; CALCIUM 9.1 MG/DL (8.5-10.1); CARBON DIOXIDE 23 MMOL/L (21-32); CHLORIDE 109 MMOL/L (98-107); CREATININE SERUM 1.32 MG/DL (0.60-1.30); GFR ESTIMATED 56; GLUCOSE 115 MG/DL (70-105); MAGNESIUM 2.1 MG/DL (1.8-2.4); POTASSIUM 4.2 MMOL/L (3.6-5.0); SODIUM 141 MMOL/L (135-145); TOTAL PROTEIN 6.7 GM/DL (6.4-8.2)
[2018-05-02 07:41] LABS: MYOGLOBIN SERUM 217.8 NG/ML (10.0-92.0)
[2018-05-02] MEDS ORDERED: NS IV 1000 ML 1,000 ML IV ONE ×2 (07:56→11:10)
--- NOTE | 2018-05-02 08:04 | Diagnostic Imaging Report ---
INDICATION: Neck pain which radiates into the right upper extremity. PA view of the chest is obtained with comparison made to study of 08/26/2014. FINDINGS: Overall heart size and pulmonary vascularity are within normal limits. There is air trapping, bilaterally. No pneumothorax or consolidation is seen. There is no definite pleural fluid. Surgical changes are again noted in the mediastinum. Short tubular object projects over the upper left chest just below the clavicle similar to previous study. There is hypertrophy of the first sternocostal joints which limits evaluation of underlying lung. IMPRESSION: Air trapping is likely due to emphysema without evidence of acute abnormality seen in the thorax. If there is concern for upper lung pathology, apical lordotic view would be of use. Dictated by: Dictated on workstation # [id number]
--- NOTE | 2018-05-02 08:13 | Diagnostic Imaging Report ---
INDICATION: Neck pain with right arm pain. CT cervical spine obtained with axial slices without contrast and sagittal and coronal reconstructions. There is no evidence of cervical spine fracture. There is no subluxation or malalignment. There is multilevel degenerative change. At C2-3, the canal and neuroforamina are widely patent. At C3-4, there is mild facet degenerative change. The canal and neuroforamina appear widely patent, however. At C4-5, there is prominent facet joint degenerative change on the left side with some left-sided neuroforaminal narrowing. There is no significant right-sided neuroforaminal narrowing or canal narrowing. At C5-C6, there is disc space narrowing and posterior osteophyte formation. There is mild bilateral neuroforamina narrowing without significant canal stenosis. At C6-7, there is posterior osteophyte formation and disc space narrowing. There is bilateral neuroforaminal narrowing, right greater than left, due to osteophyte formation. There does not appear to be significant canal stenosis. At C7-T1, the canal and neuroforamina are widely patent. IMPRESSION: Multilevel degenerative changes cervical spine as described above level by level. There is no acute fracture or subluxation. Degenerative findings are most prominent at the C5-6 and C6-7 levels as above. Dictated by: Dictated on workstation # [id number]
[2018-05-02] MEDS ORDERED: fentaNYL INJECTION 100 MCG/2 ML AMP IVP STA (08:14)
[2018-05-02] MEDS ORDERED: DEXAMETHASONE 10 MG/ML (DECADRON) 1 ML VIAL IV ONE (08:15)
--- NOTE | 2018-05-02 09:39 | Diagnostic Imaging Report ---
PROCEDURE: MR imaging cervical spine without contrast. TECHNIQUE: Multiplanar/multisequence MR imaging of the cervical spine was performed without contrast. INDICATION: Neck pain. Right arm pain, numbness, and tingling. Recent exacerbation. COMPARISON: CT cervical spine from earlier this same day. FINDINGS: Evaluation of the static alignment demonstrates slight grade 1 anterolisthesis of C4 on C5 and slight grade 1 retrolisthesis of C5 on C6. There is no evidence of jumped facets. The vertebral body heights are maintained. There is no evidence of acute fracture. There are degenerative changes, particularly involving the C5-6 and C6-C7 levels. There is associated Modic type II degenerative marrow type signal. Note is also made of multilevel intervertebral disc height loss. The cervical cord is unremarkable. There is no evidence of cord edema. No abnormal intrathecal filling defects are seen. The pre and paravertebral soft tissue structures are unremarkable. The included portions of the posterior fossa show no additional acute abnormalities. Axial images demonstrate the following: C2-C3: There is no large disc bulge or focal protrusion. There is no significant spinal canal or neuroforaminal stenosis. C3-C4: There is mild bilateral uncovertebral hypertrophy and slight broad-based posterior disc bulge. As a result, there is mild narrowing of the spinal canal and bilateral neuroforamen. C4-C5: There is bilateral uncovertebral hypertrophy. There appears to be subtle small central posterior disc protrusion. As a result, there is minimal narrowing of the spinal canal and mild narrowing of the bilateral neuroforamen. C6-C7: There is bilateral uncovertebral hypertrophy with broad-based posterior disc/osteophyte complex formation. There is also mild bilateral facet arthropathy and ligamentum flavum laxity. As a result, there is mild narrowing of the spinal canal. There is also moderate to severe narrowing of the right neuroforamen and moderate narrowing on the left. C6-C7: There is uncovertebral hypertrophy with a broad-based posterior disc bulge. There is also bilateral ligamentum flavum laxity. As a result, there is mild narrowing of the spinal canal. There is also moderate stenosis of the left neuroforamen and moderate to severe stenosis on the right. C7-T1: There is no large disc bulge or focal protrusion. There is no significant spinal canal or neuroforaminal stenosis. IMPRESSION: 1. Multilevel degenerative changes of the cervical spine, greatest at the C5-C6 and C6-C7 levels. 2. No acute fracture or dislocation. Dictated by: Dictated on workstation # [id number]
[2018-05-02 10:19] LABS: MYOGLOBIN SERUM 337.4 NG/ML (10.0-92.0)
[2018-05-02] MEDS ORDERED: lisINopril 10 MG (PRINIVIL) TABLET PO ONE (11:15)
[2018-05-02] MEDS ORDERED: predniSONE 20 MG TAB PO ONE (11:30)
[2018-05-02] MEDS ORDERED: METH4TAB PO (11:39)
--- NOTE | 2018-05-02 11:58 | Consultation-Cardiology ---
HPI-Cardiology Cardiology Consultation Date of Consultation 05/02/18 Date of Admission Time Seen by Provider: 11:30 Indication: chest pain HPI Dr. Foley is a very pleasant 58 y/o male with history of CAD, HTN, HLP. Presented to the ER with morning with complaints of right sided neck, shoulder and arm pain. States pain began last night, was worse with movement and then became worse this morning. Rates pain 6-7/10, better after receiving pain medication. Denies any dyspnea, dizziness or lightheadedness. 58 years old gentleman with history of coronary artery disease, CABG, hypertension hyperlipidemia, has been having sharp pain in his right arm with numbness with certain movement of his neck. This morning had more significant right shoulder pain. Progressed to weakness in his right shoulder. Came into the emergency room, noted to have elevation in myoglobin. Denied any chest pain. No shortness of breath, fairly active. Home Medications & Allergies Allergies: Coded Allergies: No Known Drug Allergies (Unverified , 10/02/09) [id number] Hx Patient Social History Alcohol Use: Denies Use Recreational Drug Use: No Smoking Status: Never a Smoker Recent Foreign Travel: No Recent Infectious Disease Expo: No Recent Hopitalizations: No Immunizations Up To Date Tetanus Booster (TDap): Unknown Family Medical History Significant Family History: No Pertinent Family Hx Review of Systems Constitutional: no symptoms reported, see HPI EENTM: see HPI, no symptoms reported Respiratory: no symptoms reported, see HPI; No cough, No dyspnea on exertion, No hemoptysis, No orthopnea, No phlegm, No short of breath, No stridor, No wheezing, No other Cardiovascular: no symptoms reported, see HPI; No chest pain, No edema, No Hx of Intervention, No palpitations, No syncope, No vascular heart diseas, No other Gastrointestinal: no symptoms reported, see HPI Genitourinary: no symptoms reported, see HPI Musculoskeletal: see HPI, muscle weakness, neck pain Skin: no symptoms reported, see HPI Psychiatric/Neurological: No Symptoms Reported, See HPI Physical Exam Vital Signs Vital Signs - First Documented 05/02/18 05/02/18 06:39 12:00 Temp 96.9 Pulse 66 Resp 17 B/P (MAP) 171/125 (140) Pulse Ox 97 O2 Delivery Room Air Capillary Refill : Less Than 3 Seconds Height, Weight, BMI Height: 6'5.00" Weight: 241lbs. 0.0oz. [id number]; 28.6 BMI Method:Stated General Appearance: No Apparent Distress, WD/WN Eyes: Bilateral Eye Normal Inspection, Bilateral Eye PERRL, Bilateral Eye EOMI HEENT: PERRL/EOMI, TMs Normal, Normal ENT Inspection, Pharynx Normal Neck: Full Range of Motion, Normal Inspection, Non Tender, Supple, Carotid Bruit Respiratory: Chest Non Tender, Lungs Clear, Normal Breath Sounds, No Accessory Muscle Use, No Respiratory Distress Cardiovascular: Regular Rate, Rhythm, No Edema, No Gallop, No JVD, No Murmur, Normal Peripheral Pulses Gastrointestinal: Normal Bowel Sounds, No Organomegaly, No Pulsatile Mass, Non Tender, Soft Back: Normal Inspection, No CVA Tenderness, No Vertebral Tenderness Extremity: Normal Capillary Refill, Normal Inspection, Normal Range of Motion, Non Tender, No Calf Tenderness, No Pedal Edema Neurologic/Psychiatric: Alert, Oriented x3, No Motor/Sensory Deficits, Normal Mood/Affect Skin: Normal Color, Warm/Dry Lymphatic: No Adenopathy A/P-Cardiology Admission Diagnosis Atypical chest pain Cervical radiculopathy CAD HTN Assessment/Plan Atypical chest pain- EKG and troponin negative. Elevated myoglobin likely musculoskeletal in nature. Will continue to monitor. Planning for EST in the morning. Cervical radiculopathy- was given IV and PO steroids. Following with Dr. Munguia as outpatient. Coronary artery disease, history of non-ST elevation myocardial infarction, CABG 4 using DELVALLE to distal LAD, vein graft to OM1, vein graft to OM 2, vein graft to POV. Done in July 2014, stress test showed good exercise tolerance , total of 6 minutes on Davian protocol. Appropriate heart rate and blood pressure response to exercise. No significant EKG changes. Diaphragmatic attenuation with typical male pattern. Questionable mild ischemia involving the mid to apical inferolateral wall, ejection fraction 60 percent, stress test was done in May 2016, planning to reevaluate stress test in the morning. History of pericardial effusion, pleural effusion, thoracentesis and pericardiocentesis then pericardial window done on August 07, 2014. Repeat echocardiogram done in September 2015 showing normal LV size with ejection fraction 60 percent, biatrial enlargement, pulmonary artery pressure of 25 mmHg. Paroxysmal atrial flutter postoperatively, underwent electrical cardioversion, treated with amiodarone and Coumadin, currently off both medication he was seen by Dr. Serrano. No further episodes were reported. [id number] is 1, yearly risk of stroke without oral anticoagulation is 1.3 percent, he has been on aspirin daily, amiodarone was discontinued and doing well. No other symptoms. I will continue monitoring at this time. Hypertension, elevated today. I will add lisinopril 10mg, restart home medications and continue to monitor. Hyperlipidemia, maintained on Crestor. Continue to monitor. Mild bilateral carotid stenosis, last ultrasound was done in May 2016, continue to monitor Hypothyroidism, maintained on levothyroxin, followed and managed by primary care physician History of orchiectomy secondary to testicular cancer, done in 1994. Maintained on testosterone, Continue to monitor. Chronic renal insufficiency, last creatinine level was 1.49, GFR is 49 from October 27, 2014, I will evaluate metabolic profile was lipid profile Peripheral edema, improved, continue to monitor. No changes Dyspnea on exertion, improved. Continue to monitor. Thank you for allowing us to participate in the management of Dr. Foley. This is Johnnie Cornejo PA-C, as a scribe for Dr. Sampson. This is Dr. Sampson, I have seen and evaluated Dr. Foley with Johnnie, agree with the transcribed note, in summary is a 58 years old gentleman with extensive coronary artery disease as described above. History of hypertension and hyperlipidemia. He is admitted with right shoulder pain, elevated myoglobin , normal troponin and normal EKG, he had C5-6 and C6-7 degenerative changes, seen by Dr. Munguia. We'll continue monitoring. Planning for stress test tomorrow. I agree with the current scribed note, made few modifications using Italic Font. On examination lungs were clear to auscultation bilateral, heart is regular rate and rhythm JOHNNIE TRAORE May 02, 2018 11:58 JUDITH SAMPSON MD May 02, 2018 14:32
[2018-05-02 12:00] VITALS: BP 154/87
[2018-05-02] MEDS ORDERED: CATHETER FLUSH 10 ML SYR IV PRN (12:45)
[2018-05-02] MEDS ORDERED: ACETAMINOPHEN 500 MG TAB (TYLENOL) PO PRN (12:45)
[2018-05-02] MEDS ORDERED: IBUPROFEN 600 MG (MOTRIN) TAB PO PRN (12:45)
[2018-05-02] MEDS ORDERED: CALC200T33 PO (13:14)
[2018-05-02] MEDS ORDERED: ROSU10TA27 PO (13:14)
[2018-05-02] MEDS ORDERED: LEVO88TA54 PO (13:14)
[2018-05-02] MEDS: NS IV 1000 ML 1,000 ML IV SCH ×2 (13:17→21:43)
[2018-05-02] MEDS ORDERED: ASPI325T32 PO (13:25)
[2018-05-02] MEDS ORDERED: ESOM20CA58 PO (13:25)
--- NOTE | 2018-05-02 13:47 | History & Physical-Hospitalist ---
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 He was admitted Dr. Sampson was consulted for risk stratification for atypical angina and MRI was obtained showing severe cervical stenosis consistent with radiculopathy causing the right arm weakness. At this current time patient reports pain in the right trapezius region and limited range of motion of his dominant right arm and hand. Source: patient Exam Limitations: no limitations Date Seen 05/02/18 Time Seen by a Provider: 13:00 Attending Physician Carie Bartlett DO PCP Saqib Benavidez MD Referring Physician Date of Admission May 02, 2018 at 11:25 Home Medications & Allergies Home Medications Reviewed patient Home Medication Reconciliation performed by pharmacy medication reconciliations technician support engineer and/or nursing. Patients Allergies have been reviewed. Allergies Allergies Coded Allergies No Known Drug Allergies (Unverified10/02/09) Past Zythcma-Vgjuwj-Ulsyqj Hx Past Med/Social Hx: Reviewed Nursing Past Med/Soc Hx, Reviewed and Corrections made Patient Social History Marrital Status: Employed/Student: employed Alcohol Use: Denies Use Recreational Drug Use: No Smoking Status: Never a Smoker Physical Abuse Screen: No Sexual Abuse: No Recent Foreign Travel: No Contact w/other who traveled: No Recent Hopitalizations: No Recent Infectious Disease Expo: No Immunizations Up To Date Tetanus Booster (TDap): Unknown Seasonal Allergies Seasonal Allergies: No Past Medical History Surgeries: Cardiac, CABG Cardiac: Coronary Artery Disease, Heart Attack, High Cholesterol Neurological: Neuropathy Reproductive: No Gastrointestinal: Gastroesophageal Reflux, Chronic Constipation Endocrine: Hypothyroidsim Cancer: Testicular Did You Recieve Any Treatments: Yes What Type of Treatment Did You: Chemotherapy, Surgical Intervention History of Blood Disorders: No Family History Reviewed Nursing Family Hx No Pertinent Family Hx, Cancer, Hypertension Review of Systems Constitutional: see HPI, weakness EENTM: no symptoms reported Respiratory: no symptoms reported Cardiovascular: no symptoms reported Genitourinary: no symptoms reported Musculoskeletal: joint pain, muscle pain, muscle stiffness, muscle weakness, neck pain Skin: no symptoms reported Psychiatric/Neurological: No Symptoms Reported All Other Systems Reviewed Negative Unless Noted: Yes Physical Exam Physical Exam Vital Signs Vital Signs - First Documented 05/02/18 05/02/18 06:39 12:00 Temp 96.9 Pulse 66 Resp 17 B/P (MAP) 171/125 (140) Pulse Ox 97 O2 Delivery Room Air Capillary Refill : Less Than 3 Seconds Height, Weight, BMI Height: 6'5.00" Weight: 241lbs. 0.0oz. 109.893878qf; 28.6 BMI Method:Stated General Appearance: No Apparent Distress, WD/WN Eyes: Bilateral Eye Normal Inspection, Bilateral Eye PERRL HEENT: PERRL/EOMI, TMs Normal, Normal ENT Inspection, Pharynx Normal Neck: Normal Inspection, Non Tender, Supple, Carotid Bruit, Limited Range of Motion Respiratory: Chest Non Tender, Lungs Clear, Normal Breath Sounds, No Accessory Muscle Use, No Respiratory Distress Cardiovascular: Regular Rate, Rhythm, No Edema, No Gallop, No JVD, No Murmur, Normal Peripheral Pulses Gastrointestinal: Normal Bowel Sounds, No Organomegaly, No Pulsatile Mass, Non Tender, Soft Back: Normal Inspection, No CVA Tenderness, No Vertebral Tenderness Extremity: Normal Capillary Refill, Normal Inspection, Normal Range of Motion, Non Tender, No Calf Tenderness, No Pedal Edema Neurologic/Psychiatric: Alert, Oriented x3, No Motor/Sensory Deficits, Normal Mood/Affect Skin: Normal Color, Warm/Dry Lymphatic: No Adenopathy Results Results/Procedures Labs Laboratory Tests 05/02/18 07:10 05/03/18 05:25 Patient resulted labs reviewed. Assessment/Plan Admission Diagnosis Assessment: Acute onset loss of right arm strength Hypertensive urgency Elevated myoglobin Known history of CAD with bypass surgery history Plan: Recheck troponin and risk stratify Stress test per Dr. Sampson Orthopedic spine referral Admission Status: Observation Diagnosis/Problems Diagnosis/Problems (1) Right arm weakness Status: Acute (2) Hypertensive urgency Status: Acute (3) Right hand dominant Status: Chronic (4) Hypogonadism in male Status: Chronic (5) CAD (coronary artery disease) Status: Chronic Qualifiers: Coronary Disease-Associated Artery/Lesion type: [place] artery [place] vs. transplanted heart: [place] heart Associated angina: without angina Qualified Codes: I25.10 - Atherosclerotic heart disease of [place] coronary artery without angina pectoris Clinical Quality Measures DVT/VTE Risk/Contraindication: Risk Factor Score Per Nursin RFS Level Per Nursing on Admit: 1=Low/No VTE PPX ARGELIA FLORES MED STUDENT 05/02/18 1419: History of Present Illness HPI/Chief Complaint CC: Right Arm Pain HPI: This is a 58 y/o male that presented to the ER this morning with a complaint of right arm pain. He states that symptoms began over a month ago and have progressively gotten worse. The pain in his arm became much worse last night and brought him into the ER this morning. The patient states that the pain is worse when looking upward and resolves when looking at the floor. He states that he has not had any previous occurrences of pain of this nature. Source: patient Exam Limitations: no limitations Home Medications & Allergies Home Medications Allergies: NKDA Medications: Aspirin/Calcium Carbonate/Mag 325 Mg Tablet, 325 MG PO DAILY, (Reported) Atorvastatin Calcium 20 Mg Tablet, 20 MG PO BID, (Reported) Calcium Carbonate Unknown Strength Tab.chew, 200 MG PO PRN, (Reported) Esomeprazole Mag Trihydrate 40 Mg Capsule.dr, 40 MG PO HS, (Reported) Methylprednisolone 4 Mg Tab.ds.pk, 4 MG PO UD PER DOSE PACK INSTRUCTIONS Prescribed by: BRAXTON ORR on 05/02/18 1139 Metoprolol Tartrate 25 Mg Tablet, 6 MG PO BID, (Reported) [Levothyroxine] , 88 MCG PO HS, (Reported) [Testosterone] , TOP Q DAY, (Reported) Past Ehcmdqu-Qjozkn-Xtzbtg Hx Patient Social History Marrital Status: Employed/Student: employed Alcohol Use: Denies Use Recreational Drug Use: No Smoking Status: Never a Smoker Seasonal Allergies Seasonal Allergies: No Past Medical History Surgeries: Cardiac, CABG, Orthopedic, Testicular Cardiac: Coronary Artery Disease, Heart Attack, High Cholesterol Neurological: Neuropathy Gastrointestinal: Gastroesophageal Reflux, Chronic Constipation Endocrine: Hypothyroidsim Cancer: Testicular Did You Recieve Any Treatments: Yes What Type of Treatment Did You: Chemotherapy, Surgical Intervention Family History Reviewed Nursing Family Hx Cancer, Hypertension Review of Systems Constitutional: no symptoms reported EENTM: no symptoms reported Respiratory: no symptoms reported Cardiovascular: no symptoms reported Gastrointestinal: constipation, heartburn Genitourinary: no symptoms reported Musculoskeletal: neck pain Skin: no symptoms reported Psychiatric/Neurological: No Symptoms Reported Physical Exam Physical Exam General Appearance: No Apparent Distress, WD/WN Neck: Non Tender, Supple, Limited Range of Motion Respiratory: Chest Non Tender, Lungs Clear, Normal Breath Sounds, No Accessory Muscle Use, No Respiratory Distress Cardiovascular: Regular Rate, Rhythm, No Edema, No Gallop, No JVD, No Murmur, Normal Peripheral Pulses Neurologic/Psychiatric: Alert, Oriented x3, No Motor/Sensory Deficits, Normal Mood/Affect Skin: Normal Color, Warm/Dry Lymphatic: No Adenopathy Results Results/Procedures Imaging CT: Cervical Sine WO IMPRESSION: Multilevel degenerative changes cervical spine as described above level by level. There is no acute fracture or subluxation. Degenerative findings are most prominent at the C5-6 and C6-7 levels as above. MRI: Cervical spine IMPRESSION: 1. Multilevel degenerative changes of the cervical spine, greatest at the C5-C6 and C6-C7 levels. 2. No acute fracture or dislocation. Assessment/Plan Admission Diagnosis Assessment: 1) Cervical Radiculopathy 2) Uncontrolled Hypertension Plan: 1) Consult Pst Manager 2) Consult Sql Database Administrator CARIE BARTLETT DO May 02, 2018 13:47 ARGELIA FLORES MED STUDENT May 02, 2018 14:19
[2018-05-02] MEDS ORDERED: CALCIUM CARBONATE 500 MG (TUMS) TAB.CHEW PO PRN (14:00)
[2018-05-02] MEDS ORDERED: CALCIUM CARBONATE 200 MG PO PRN (14:00)
[2018-05-02] MEDS ORDERED: FLU QUADRIvalent (5+ YOA) 2018-2019 (AFLURIA) 0.5 ML IM ONE (14:15)
--- OUTSIDE RECORDS SUMMARY | 2018-05-02 15:11 | XMS REPORT | Continuity of Care Document ---
Author Author [facility] Organization [facility] Address Unknown Phone Unavailable Allergies Active Description Code Type Severity Reaction Onset Reported/Identified Relationship to Patient Clinical Status Yes No Known Drug Allergies [id number] Drug Allergy Mild N/A 10/02/2009 Medications There [...] 793.19 08/29/2014 Ot V45.89 11/24/2014 SHEMAR PEDROZA, JUDTIH Caban Ot 427.32 11/29/2014 SHEMAR PEDROZA, JUDITH [...] MD Ot 427.32 ATRIAL FLUTTER 05/01/2015 EARL JONES MD Ot K21.9 GASTRO-ESOPHAGEAL REFLUX DISEASE WITHOUT [...] MD Ot I25.10 ATHSCL HEART DISEASE OF [place] CORONARY 11/12/2015 JUDITH STATON MD Ot I48.92 UNSPECIFIED ATRIAL FLUTTER 05/18/2016 JUDITH STATON MD Ot E78.4 OTHER HYPERLIPIDEMIA 05/18/2016 JUDITH STATON MD Ot F17.200 NICOTINE DEPENDENCE, UNSPECIFIED, UNCOMP 05/18/2016 JUDITH STATON MD Ot I25.10 ATHSCL HEART DISEASE OF [place] CORONARY 05/18/2016 JUDITH STATON MD Ot I48.92 [...] MD Ot I25.10 ATHSCL HEART DISEASE OF [place] CORONARY 06/15/2016 JUDITH STATON MD Ot I48.92 [...] MD Ot I25.10 ATHSCL HEART DISEASE OF [place] CORONARY 06/15/2016 JUDITH STATON MD Ot I48.92 UNSPECIFIED ATRIAL FLUTTER 06/16/2016 JUDITH STATON MD Ot E78.4 OTHER HYPERLIPIDEMIA 06/16/2016 JUDITH STATON MD Ot F17.200 NICOTINE DEPENDENCE, UNSPECIFIED, UNCOMP 06/16/2016 JUDITH STATON MD Ot I25.10 ATHSCL HEART DISEASE OF [place] CORONARY 06/16/2016 JUDITH STATON MD Ot I48.92 [...] I21.4 NON-ST ELEVATION (NSTEMI) MYOCARDIAL INF 08/23/2017 JUDIHT STATON MD Ot I25.10 ATHSCL HEART DISEASE OF [place] CORONARY 08/23/2017 JUDITH STATON MD Ot I34.0 NONRHEUMATIC MITRAL (VALVE) INSUFFICIENC 08/23/2017 JUDITH STATON MD Ot I48.92 UNSPECIFIED ATRIAL FLUTTER 12/12/2017 JUDITH STATON MD, Ot E78.2 MIXED HYPERLIPIDEMIA 12/12/2017 JUDITH STATON MD Ot I21.4 NON-ST ELEVATION (NSTEMI) MYOCARDIAL INF 12/12/2017 JUDITH STATON MD Ot I25.10 ATHSCL HEART DISEASE OF [place] CORONARY 12/12/2017 JUDITH STATON MD Ot I34.0 NONRHEUMATIC MITRAL (VALVE) INSUFFICIENC 12/12/2017 JUDITH STATON MD, Ot I48.92 UNSPECIFIED ATRIAL FLUTTER 12/12/2017 JUDITH STATON MD, Ot E78.2 MIXED HYPERLIPIDEMIA 12/12/2017 JUDITH STATON MD Ot I21.4 NON-ST ELEVATION (NSTEMI) MYOCARDIAL INF 12/12/2017 JUDITH STATON MD Ot I25.10 ATHSCL HEART DISEASE OF [place] CORONARY 12/12/2017 JUDITH STATON MD Ot I34.0 [...] 09:59 THYROID STIMULATING HORMONE 1.63 u[iU]/mL 0.35-4.94 Complete blood count (CBC) with automated white blood cell (WBC) differential - 05/02/18 07:10 Blood leukocytes automated count (number/volume) 6.1 10*3/uL 4.3-11.0 Blood erythrocytes automated count (number/volume) 5.23 10*6/uL 4.35-5.85 Venous blood hemoglobin measurement (mass/volume) 16.1 g/dL 13.3-17.7 Blood hematocrit (volume fraction) 47 % 40-54 Automated erythrocyte mean corpuscular volume 90 [foz_us] 80-99 Automated erythrocyte mean corpuscular hemoglobin (mass per erythrocyte) 31 pg 25-34 Automated erythrocyte mean corpuscular hemoglobin concentration measurement ( mass/volume) 34 g/dL 32-36 Automated erythrocyte distribution width ratio 13.3 % 10.0-14.5 Automated blood platelet count (count/volume) 175 10*3/uL 130-400 Automated blood platelet mean volume measurement 10.1 [foz_us] 7.4-10.4 Automated blood neutrophils/100 leukocytes 59 % 42-75 Automated blood lymphocytes/100 leukocytes 29 % 12-44 Blood monocytes/100 leukocytes 9 % 0-12 Automated blood eosinophils/100 leukocytes 3 % 0-10 Automated blood basophils/100 leukocytes 1 % 0-10 Blood neutrophils automated count (number/volume) 3.6 10*3 1.8-7.8 Blood lymphocytes automated count (number/volume) 1.8 10*3 1.0-4.0 Blood monocytes automated count (number/volume) 0.5 10*3 0.0-1.0 Automated eosinophil count 0.2 10*3/uL 0.0-0.3 Automated blood basophil count (count/volume) 0.0 10*3/uL 0.0-0.1 PT panel in platelet poor plasma by coagulation assay - 05/02/18 07:10 Prothrombin time (PT) in platelet poor plasma by coagulation assay 13.0 s 12.2-14.7 INR in platelet poor plasma or blood by coagulation assay 1.0 0.8-1.4 Activated partial thromboplastin time (aPTT) in platelet poor plasma bycoagulation assay - 05/02/18 07:10 Activated partial thromboplastin time (aPTT) in platelet poor plasma bycoagulation assay 25 s 24-35 Comprehensive metabolic panel - 05/02/18 07:10 Serum or plasma sodium measurement (moles/volume) 141 mmol/L 135-145 Serum or plasma potassium measurement (moles/volume) 4.2 mmol/L 3.6-5.0 Serum or plasma chloride measurement (moles/volume) 109 mmol/L 98-107 Carbon dioxide 23 mmol/L 21-32 Serum or plasma anion gap determination (moles/volume) 9 mmol/L 5-14 Serum or plasma urea nitrogen measurement (mass/volume) 21 mg/dL 7-18 Serum or plasma creatinine measurement (mass/volume) 1.32 mg/dL 0.60-1.30 Serum or plasma urea nitrogen/creatinine mass ratio 16 NRG Serum or plasma creatinine measurement with calculation of estimated glomerular filtration rate 56 NRG Serum or plasma glucose measurement (mass/volume) 115 mg/dL 70-105 Serum or plasma calcium measurement (mass/volume) 9.1 mg/dL 8.5-10.1 Serum or plasma total bilirubin measurement (mass/volume) 0.6 mg/dL 0.1-1.0 Serum or plasma alkaline phosphatase measurement (enzymatic activity/volume) 51 U/L 40-136 Serum or plasma aspartate aminotransferase measurement (enzymatic activity/ volume) 34 U/L 5-34 Serum or plasma alanine aminotransferase measurement (enzymatic activity/volume ) 35 U/L 0-55 Serum or plasma protein measurement (mass/volume) 6.7 g/dL 6.4-8.2 Serum or plasma albumin measurement (mass/volume) 4.1 g/dL 3.2-4.5 CALCIUM CORRECTED 9.0 mg/dL 8.5-10.1 Magnesium - 05/02/18 07:10 Magnesium 2.1 mg/dL 1.8-2.4 Fibrin D-dimer FEU measurement in platelet poor plasma (mass/volume) - 07:10 Fibrin D-dimer FEU measurement in platelet poor plasma (mass/volume) 0.43 ug/mL 0.00-0.49 Serum or plasma troponin i.cardiac measurement (mass/volume) - 05/02/18 07:10 Serum or plasma troponin i.cardiac measurement (mass/volume) < ng/ mL <0.30 Myoglobin, serum - 05/02/18 07:10 Myoglobin, serum 217.8 ng/mL 10.0-92.0 Serum or plasma creatine kinase measurement (enzymatic activity/volume) - 05/02 09:36 Serum or plasma creatine kinase measurement (enzymatic activity/volume) 407 U/L 30-200 Serum or plasma troponin i.cardiac measurement (mass/volume) - 05/02/18 09:46 Serum or plasma troponin i.cardiac measurement (mass/volume) < ng/ mL <0.30 Myoglobin, serum - 05/02/18 09:46 Myoglobin, serum 337.4 ng/mL 10.0-92.0 Encounters ACCT No. Visit Date/Time Discharge Status Pt. Type Provider Facility Loc./Unit Complaint [id number] 08/10/2017 08:54:00 08/10/2017 23:59:59 CLS Outpatient JUDITH STATON MD [facility] CARD I25.10,E78.2,I48.92, I21.4 [id number] 06/16/2016 09:09:00 06/16/2016 23:59:59 CLS Outpatient JUDITH STATON MD [facility] LAB ATRIAL FLUTTER, HYPERLIPIDEMIA [id number] 05/18/2016 12:22:00 05/18/2016 23:59:59 CLS Outpatient JUDITH STATON MD [facility] CARD ATRIAL FLUTTER,HLP, PERICARDIAL EFFUSION [id number] 09/24/2015 07:53:00 09/24/2015 23:59:59 CLS Outpatient JUDITH STATON MD [facility] CAD,AFLUTTER, HLP, TOBACCO USE [id number] 05/01/2015 07:33:00 05/01/2015 09:30:00 DIS Outpatient EARL JONES MD [facility] SDC BARRETTS ESOPHAGUS [id number] 04/30/2015 05:51:00 04/30/2015 23:59:59 CLS Outpatient EARL JONES MD [facility] PREOP [place]RETTS ESOPHAGUS [id number] 02/19/2015 09:57:00 04/01/2015 00:01:00 DIS Outpatient JUDITH STATON MD [facility] CARD AFIB,NONSTEMI [id number] 03/16/2015 00:09:00 03/16/2015 23:59:59 CLS Preadmit JUDITH STATON MD [facility] LAB ATRIAL FLUTTER [id number] 01/15/2015 08:46:00 03/15/2015 00:01:00 DIS Outpatient JUDITH STATON MD [facility] LAB ATRIAL FLUTTER [id number] 11/20/2014 10:41:00 11/24/2014 00:01:00 DIS Outpatient JUDITH STATON MD [facility] LAB [id number] 11/05/2014 13:42:00 11/05/2014 23:59:59 CLS Outpatient JUDITH STATON MD [facility] CARD [id number] 10/27/2014 10:19:00 10/27/2014 23:59:59 CLS Outpatient JUDITH TSATON MD [facility] LAB [id number] 10/15/2014 11:45:00 10/17/2014 12:22:00 DIS Outpatient JUDITH STATON MD [facility] [id number] 08/14/2014 13:32:00 08/14/2014 23:59:59 CLS Outpatient OTHER, UNLISTED [facility] [id number] 07/07/2014 15:45:00 07/07/2014 16:53:00 DIS Inpatient EMY PEDROZA, ERI Steward [facility] ICU [id number] 11/07/2012 12:28:00 11/07/2012 23:59:59 CLS Outpatient SUNNI PEDROZA, JAYLON Paige [facility] [id number] 05/02/2018 07:17:00 Document Registration [id number] 08/26/2014 10:18:00 Document Registration [id number] 08/20/2014 09:04:00 Document Registration [id number] 08/19/2014 18:54:00 Document Registration [id number] 08/19/2014 16:06:00 Document Registration [id number] 07/07/2014 14:00:00 Document Registration [id number] 07/18/2012 13:57:00 Document Registration [id number] 05/23/2011 07:00:00 Document Registration
[2018-05-02 15:45] VITALS: BP 137/80
[2018-05-02] MEDS: ASPIRIN E.C. 325 MG (ECOTRIN) TABLET PO SCH (17:23)
[2018-05-02 20:00] VITALS: BP 129/77
[2018-05-02] MEDS ORDERED: ROSUVASTATIN 10 MG (CRESTOR) TABLET PO SCH (21:00)
[2018-05-02] MEDS ORDERED: ASPIRIN E.C. 325 MG (ECOTRIN) TABLET PO SCH (21:00)
[2018-05-02] MEDS: meTOprolol TARTRATE 25 MG (LOPRESSOR) TABLET PO SCH (21:43)
[2018-05-03] VITALS (7 sets, daily range): BP systolic 121–133; BP diastolic 67–93
[2018-05-03 05:43] LABS: BASOPHILS % (AUTO) 0 % (0-10); EOSINOPHILS % (AUTO) 0 % (0-10); HEMATOCRIT 38 % (40-54); HEMOGLOBIN 13.1 G/DL (13.3-17.7); LYMPHOCYTES # (AUTO) 1.2 X 10^3 (1.0-4.0); LYMPHOCYTES % (AUTO) 14 % (12-44); MEAN CORPUSCULAR HEMOGLOBIN 31 PG (25-34); MEAN CORPUSCULAR HGB CONC 35 G/DL (32-36); MEAN CORPUSCULAR VOLUME 91 FL (80-99); MEAN PLATELET VOLUME 10.6 FL (7.4-10.4); MONOCYTES # (AUTO) 0.5 X 10^3 (0.0-1.0); MONOCYTES % (AUTO) 6 % (0-12); NEUTROPHILS # (AUTO) 6.6 X 10^3 (1.8-7.8); NEUTROPHILS % (AUTO) 79 % (42-75); PLATELET COUNT 182 10^3/uL (130-400); RED BLOOD COUNT 4.19 10^6/uL (4.35-5.85); RED CELL DISTRIBUTION WIDTH 13.5 % (10.0-14.5); WHITE BLOOD COUNT 8.3 10^3/uL (4.3-11.0)
[2018-05-03] MEDS: NS IV 1000 ML 1,000 ML IV SCH ×2 (05:58→14:14)
[2018-05-03 06:04] LABS: CHOLESTEROL 133 MG/DL (< 200); HDL CHOLESTEROL 32 MG/DL (40-60); TRIGLYCERIDES 94 MG/DL (<150); VLDL CHOLESTEROL 19 MG/DL (5-40)
[2018-05-03 06:21] LABS: ALANINE AMINOTRANSFERASE 26 U/L (0-55); ALBUMIN 3.3 GM/DL (3.2-4.5); ALKALINE PHOSPHATASE 34 U/L (40-136); BILIRUBIN,TOTAL 0.3 MG/DL (0.1-1.0); BUN/CREATININE RATIO 20; CALCIUM 7.6 MG/DL (8.5-10.1); CARBON DIOXIDE 15 MMOL/L (21-32); CHLORIDE 116 MMOL/L (98-107); GFR ESTIMATED > 60; GLUCOSE 130 MG/DL (70-105); POTASSIUM 5.1 MMOL/L (3.6-5.0); SODIUM 138 MMOL/L (135-145); TOTAL PROTEIN 5.8 GM/DL (6.4-8.2)
[2018-05-03] MEDS ORDERED: LEVOTHYROXINE 88 MCG (LEVOTHORID) TAB PO SCH (06:30)
[2018-05-03] MEDS ORDERED: predniSONE 20 MG TAB PO SCH (07:00)
[2018-05-03] MEDS ORDERED: PANTOPRAZOLE 20 MG TABLET (PROTONIX) PO SCH (07:00)
[2018-05-03] MEDS ORDERED: NON-FORMULARY MEDICATION 1 EA EA (Esomeprazole Magnesium (Nexium 24Hr) 20 MG) PO SCH (09:00)
--- NOTE | 2018-05-03 09:15 | Progress Note-Hospitalist ---
Subjective HPI/CC On Admission Date Seen by Provider: May 03, 2018 Time Seen by Provider: 09:45 CC: Right Arm Pain HPI: This is a 58 y/o male that presented to the ER this morning with a complaint of right arm pain. He states that symptoms began over a month ago and have progressively gotten worse. The pain in his arm became much worse last night and brought him into the ER this morning. The patient states that the pain is worse when looking upward and resolves when looking at the floor. He states that he has not had any previous occurrences of pain of this nature. Subjective/Events-last exam Patient doing a little better and not having any more shoulder pain but does have increased loss of function in his right arm and hand I did reach out to orthopedic surgery Dr. HERRON who will see him in consultation after review of MRI Stress test completed awaiting results from Dr. Sampson Hypertension much better controlled Denies any other new issues Review of Systems Neurological: Weakness, Numbness Objective Exam Vital Signs Vital Signs Date Time Temp Pulse Resp B/P (MAP) Pulse Ox O2 Delivery O2 Flow Rate FiO2 05/03/18 08:16 91 132/93 (106) 95 05/03/18 08:00 98.4 18 Room Air Capillary Refill : Less Than 3 Seconds General Appearance: No Apparent Distress, WD/WN, Chronically ill Respiratory: Chest Non Tender, Lungs Clear, Normal Breath Sounds, No Accessory Muscle Use, No Respiratory Distress Cardiovascular: Regular Rate, Rhythm, No Edema, No Gallop, No JVD, No Murmur, Normal Peripheral Pulses Extremity: Other (right arm decreased ROM ) Neurologic/Psychiatric: Alert, Oriented x3, No Motor/Sensory Deficits, Normal Mood/Affect Results/Procedures Lab Laboratory Tests 05/03/18 05:25 Patient resulted labs reviewed. Assessment/Plan Assessment and Plan Assess & Plan/Chief Complaint Assessment: Right arm numbness and weakness with loss of function Hypertensive urgency CAD previous bypass surgery history Hyperlipidemia Plan: Await stress test results Monitor blood pressure Await Dr. HERRON consultation Diagnosis/Problems Diagnosis/Problems (1) Elevated myoglobin level Status: Acute (2) Right arm weakness Status: Acute (3) Hypertensive urgency Status: Acute (4) CAD (coronary artery disease) Status: Chronic Qualifiers: Coronary Disease-Associated Artery/Lesion type: [place] artery [place] vs. 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
[2018-05-03] MEDS: meTOprolol TARTRATE 25 MG (LOPRESSOR) TABLET PO SCH (10:24)
--- NOTE | 2018-05-03 12:42 | STRESS TEST ---
DATE OF SERVICE: 05/03/2018 TITLE: Exercise Myoview stress test report REFERRING PHYSICIAN: Saqib Benavidez MD Baseline heart rate is 68, Baseline blood pressure 140/88, and baseline EKG is sinus rhythm with no ischemic changes. In summary, the patient has started exercising with a baseline heart rate, blood pressure and EKG mentioned above. His heart rate has increased fairly quickly within the first 2 minutes of exercise. He reached heart rate of 140. He was able to exercise for a total of 5 minutes on Davian protocol, achieving maximum heart rate of 156, which is 96% of maximum expected heart rate. With peak exercise level, blood pressure was 169/89. EKG was showing minimal nondiagnostic changes. During recovery, heart rate and blood pressure returned to baseline. EKG returned to baseline. The resting and stress images were reviewed and compared in the short axis, horizontal long axis, and vertical long axis views. Review of the images showed extracardiac attenuation with mild decreased uptake at the anterior wall and anterolateral wall with subtle reversibility. SSS is 4, SDS 0. TID value is 1.02. On the gated images, the left ventricle appeared to be in normal size with normal contractility. Calculated ejection fraction 59%. CONCLUSION: 1. Fair exercise tolerance, a total of 5 minutes on standard Davian protocol, total of 7 METs, achieving 96% of maximum expected heart rate. 2. Fairly rapid heart rate increase with exercise returned to baseline during recovery. 3. Minimal nondiagnostic EKG changes with exercise returned to baseline during recovery. 4. Mild decrease uptake at the anterior wall and anterolateral wall with extracardiac attenuation, overall there is no significant ischemia or infarction was noted. 5. Normal left ventricular size with normal contractility. Calculated ejection fraction is 59%. Job ID: [id number] DocumentID: [id number] Dictated Date: 05/03/2018 11:44:57 Director Medical Economics Date: 05/03/2018 12:41:39 Dictated By: JUDITH STATON MD
--- NOTE | 2018-05-03 13:55 | Cardiology Progress Note ---
Subjective Date Seen by Provider: May 03, 2018 Time Seen by Provider: 13:54 Subjective/Events-last exam Patient was seen and evaluated, feeling well. Denied any chest pain, still unable to lift his right arm Review of Systems General: No Chills, No Night Sweats, No Fatigue, No Malaise, No Appetite, No Other HEENT: No Head Aches, No Visual Changes, No Eye Pain, No Ear Pain, No Dysphasia , No Sinus Congestion, No Post Nasal Drip, No Sore Throat, No Other Pulmonary: No Dyspnea, No Cough, No Pleuritic Chest Pain, No Other Cardiovascular: No: Chest Pain, Palpitations, Orthopnea, Paroxysmal Noc. Dyspnea, Edema, Lt Headedness, Other Objective-Cardiology Exam Last Set of Vital Signs Vital Signs 05/03/18 05/03/18 08:00 08:16 Temp 98.4 Pulse 91 Resp 18 B/P (MAP) 132/93 (106) Pulse Ox 95 O2 Delivery Room Air Capillary Refill : Less Than 3 Seconds I&O Intake and Output 05/03/18 00:00 Intake Total 4070 ml Balance 4070 ml Intake Oral 1070 ml IV Total 3000 ml # Voids 5 Daily Weight Change No General: Alert, Oriented X3, Cooperative HEENT: Atraumatic, PERRLA Neck: Supple, No JVD, No Thyromegaly Lungs: Clear to Auscultation, Normal Air Movement Heart: Regular Rate, Normal S1, Normal S2, No Murmurs Abdomen: Normal Bowel Sounds, Soft, No Tenderness, No Hepatosplenomegaly, No Masses Extremities: No Clubbing, No Cyanosis, No Edema, Normal Pulses, No Tenderness/ Swelling Skin: No Rashes, No Breakdown, No Significant Lesion Neuro: Normal Gait, Normal Speech, Strength at 5/5 X4 Ext, Normal Tone, Sensation Intact Psych/Mental Status: Mental Status NL, Mood NL Results Lab Laboratory Tests 05/03/18 05:25 A/P-Cardiology Admission Diagnosis Atypical chest pain Cervical radiculopathy CAD HTN Assessment/Plan Atypical chest pain- EKG and troponin negative, EKG did not show any acute abnormality. Stress test showed fair exercise tolerance, minimal decrease uptake in the anterior wall anterolateral wall with subtle abnormality and reversibility, no significant ischemia was noted. I instructed him to increase his metoprolol to 25 mg twice daily and monitor his tolerance and response. Cervical radiculopathy- was given IV and PO steroids. Following with Dr. Munguia as outpatient. Coronary artery disease, history of non-ST elevation myocardial infarction, CABG 4 using DELVALLE to distal LAD, vein graft to OM1, vein graft to OM 2, vein graft to POV. Done in July 2014, stress test showed good exercise tolerance , total of 6 minutes on Davian protocol. Appropriate heart rate and blood pressure response to exercise. No significant EKG changes. Diaphragmatic attenuation with typical male pattern. Questionable mild ischemia involving the mid to apical inferolateral wall, ejection fraction 60 percent, stress test was done in May 2016, continue to monitor History of pericardial effusion, pleural effusion, thoracentesis and pericardiocentesis then pericardial window done on August 07, 2014. Repeat echocardiogram done in September 2015 showing normal LV size with ejection fraction 60 percent, biatrial enlargement, pulmonary artery pressure of 25 mmHg. Paroxysmal atrial flutter postoperatively, underwent electrical cardioversion, treated with amiodarone and Coumadin, currently off both medication he was seen by Dr. Serrano. No further episodes were reported. [id number] is 1, yearly risk of stroke without oral anticoagulation is 1.3 percent, he has been on aspirin daily, amiodarone was discontinued and doing well. No other symptoms. I will continue monitoring at this time. Hypertension, elevated today. I will add lisinopril 10mg, restart home medications and continue to monitor. Hyperlipidemia, maintained on Crestor. Continue to monitor. Mild bilateral carotid stenosis, last ultrasound was done in May 2016, continue to monitor Hypothyroidism, maintained on levothyroxin, followed and managed by primary care physician History of orchiectomy secondary to testicular cancer, done in 1994. Maintained on testosterone, Continue to monitor. Chronic renal insufficiency, last creatinine level was 1.49, GFR is 49 from October 27, 2014, I will evaluate metabolic profile was lipid profile Peripheral edema, improved, continue to monitor. No changes Dyspnea on exertion, improved. Continue to monitor. Clinical Quality Measures DVT/VTE Risk/Contraindication: Risk Factor Score Per Nursin RFS Level Per Nursing on Admit: 1=Low/No VTE PPX JUDITH STATON MD May 03, 2018 1:55 pm
[2018-05-03] MEDS: ASPIRIN E.C. 325 MG (ECOTRIN) TABLET PO SCH (17:23)
[2018-05-03] MEDS ORDERED: METO-333 PO (17:28)
[2018-05-03] MEDS ORDERED: METH4TAB PO (17:28)
--- NOTE | 2018-05-03 17:44 | Consultation ---
History of Present Illness History of Present Illness Patient Consulted On(shelby/time) 05/03/18 17:39 Date Seen by Provider: May 03, 2018 Time Seen by Provider: 17:40 Reason for Visit: Neck pain, right shoulder weakness History of Present Illness 58 y/o white male, with several weeks of neck pain and radicular symptoms, became acutely worse yesterday morning, the pain has since gone away, but has profound right shoulder weakness at this point. Allergies and Home Medications Allergies Coded Allergies: No Known Drug Allergies (Unverified , 10/02/09) Home Medications Aspirin 325 Mg Tablet.dr, 325 MG PO HS, (Reported) Calcium Carbonate 200 Mg Tab.chew, 200 MG PO TID PRN for INDIGESTION, (Reported) Esomeprazole Magnesium 20 Mg Capsule.dr, 20 MG PO DAILY, (Reported) Levothyroxine Sodium 88 Mcg Tablet, 88 MCG PO DAILY, (Reported) Methylprednisolone 4 Mg Tab.ds.pk, 4 MG PO UD PER DOSE PACK INSTRUCTIONS Prescribed by: JC BARTLETT on 05/03/181727 Metoprolol Tartrate 25 Mg Tablet, 25 MG PO BID Prescribed by: JC BARTLETT on 05/03/18 172 Rosuvastatin Calcium 10 Mg Tablet, 10 MG PO HS, (Reported) [Testosterone] , TOP Q DAY, (Reported) Patient Home Medication List Home Medication List Reviewed: Yes Past Zpzcgov-Govpel-Pjcmjq Hx Past Med/Social Hx: Reviewed Nursing Past Med/Soc Hx, Reviewed and Corrections made Patient Social History Alcohol Use: Denies Use Recreational Drug Use: No Smoking Status: Never a Smoker Recent Foreign Travel: No Contact w/Someone Who Travel: No Recent Infectious Disease Expo: No Recent Hopitalizations: No Immunizations Up To Date Tetanus Booster (TDap): Unknown Seasonal Allergies Seasonal Allergies: No Past Medical History Surgeries: Yes (CARDIOVERSION, PERICARDIAL WINDOW, THORACENTESIS) Cardiac, CABG, Orthopedic, Testicular Respiratory: No Cardiac: Yes Coronary Artery Disease, Heart Attack, High Cholesterol Neurological: No Neuropathy Reproductive Disorders: No Gastrointestinal: Yes Gastroesophageal Reflux, Chronic Constipation Musculoskeletal: No Endocrine: Yes Hypothyroidsim Cancer: Yes Testicular Did You Recieve Any Treatments: Yes What Type of Treatment Did You: Chemotherapy, Surgical Intervention Psychosocial: No Integumentary: No Blood Disorders: No Family Medical History Reviewed Nursing Family Hx No Pertinent Family Hx, Cancer, Hypertension Review of Systems-General Constitutional: no symptoms reported EENTM: no symptoms reported Respiratory: no symptoms reported Cardiovascular: no symptoms reported Gastrointestinal: no symptoms reported Genitourinary: no symptoms reported Musculoskeletal: muscle weakness Skin: no symptoms reported Psychiatric/Neurological: Numbness, Paresthesia, Weakness Physical Exam-General Problems Physical Exam Vital Signs Vital Signs - First Documented 05/02/18 05/02/18 06:39 12:00 Temp 96.9 Pulse 66 Resp 17 B/P (MAP) 171/125 (140) Pulse Ox 97 O2 Delivery Room Air Capillary Refill : Less Than 3 Seconds General Appearance: no apparent distress Eyes: Bilateral Eye Normal Inspection Neck: full range of motion, supple, normal inspection Respiratory: lungs clear Cardiovascular: regular rate, rhythm Extremities: normal range of motion, other (Has distnict 2/5 right infraspinatous strength.) Assessment/Plan Assessment/Plan Admission Diagnosis/Plan Cervical Radiculopathy Acute shoulder weakness Right Plan: D/C home, follow up for outpt MRI scan shoulder 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 Clinical Quality Measures DVT/VTE Risk/Contraindication: Risk Factor Score Per Nursin RFS Level Per Nursing on Admit: 1=Low/No VTE PPX GEOFFREY HERRON MD May 03, 2018 5:44 pm
[2018-05-03] MEDS ORDERED: meTOprolol TARTRATE 25 MG (LOPRESSOR) TABLET PO SCH (21:00)
--- OUTSIDE RECORDS SUMMARY | 2018-05-08 14:04 | XMS REPORT | Continuity of Care Document ---
Author Author [facility] Organization [facility] Address Unknown Phone Unavailable Allergies Active Description Code Type Severity Reaction Onset Reported/Identified Relationship to Patient Clinical Status Yes No Known Drug Allergies [id number] Drug Allergy Mild N/A 10/02/2009 Medications There [...] MD Ot I25.10 ATHSCL HEART DISEASE OF [place] CORONARY 11/12/2015 JUDITH STATON MD Ot I48.92 UNSPECIFIED ATRIAL FLUTTER 05/18/2016 JUDITH STATON MD Ot E78.4 OTHER HYPERLIPIDEMIA 05/18/2016 JUDITH STATON MD Ot F17.200 NICOTINE DEPENDENCE, UNSPECIFIED, UNCOMP 05/18/2016 JUDITH STATON MD Ot I25.10 ATHSCL HEART DISEASE OF [place] CORONARY 05/18/2016 JUDITH STATON MD Ot I48.92 [...] MD Ot I25.10 ATHSCL HEART DISEASE OF [place] CORONARY 06/15/2016 JUDITH STATON MD Ot I48.92 [...] MD Ot I25.10 ATHSCL HEART DISEASE OF [place] CORONARY 06/15/2016 JUDITH STATON MD Ot I48.92 UNSPECIFIED ATRIAL FLUTTER 06/16/2016 JUDITH STATON MD Ot E78.4 OTHER HYPERLIPIDEMIA 06/16/2016 JUDITH STATON MD Ot F17.200 NICOTINE DEPENDENCE, UNSPECIFIED, UNCOMP 06/16/2016 JUDITH STATON MD Ot I25.10 ATHSCL HEART DISEASE OF [place] CORONARY 06/16/2016 JUDITH STATON MD Ot I48.92 [...] MD Ot I25.10 ATHSCL HEART DISEASE OF [place] CORONARY 08/23/2017 JUDITH STATON MD Ot I34.0 NONRHEUMATIC MITRAL (VALVE) INSUFFICIENC 08/23/2017 JUDITH STATON MD Ot I48.92 UNSPECIFIED ATRIAL FLUTTER 12/12/2017 JUDITH STATON MD Ot E78.2 MIXED HYPERLIPIDEMIA 12/12/2017 JUDITH STATON MD Ot I21.4 NON-ST ELEVATION (NSTEMI) MYOCARDIAL INF 12/12/2017 JUDITH STATON MD Ot I25.10 ATHSCL HEART DISEASE OF [place] CORONARY 12/12/2017 JUDITH STATON MD Ot I34.0 NONRHEUMATIC MITRAL (VALVE) INSUFFICIENC 12/12/2017 JUDITH STATON MD Ot I48.92 UNSPECIFIED ATRIAL FLUTTER 12/12/2017 JUDITH STATON MD Ot E78.2 MIXED HYPERLIPIDEMIA 12/12/2017 JUDITH STATON MD Ot I21.4 NON-ST ELEVATION (NSTEMI) MYOCARDIAL INF 12/12/2017 JUDITH STATON MD Ot I25.10 ATHSCL HEART DISEASE OF [place] CORONARY 12/12/2017 JUDITH STATON MD Ot I34.0 NONRHEUMATIC MITRAL (VALVE) INSUFFICIENC 12/12/2017 JUDITH STATON MD Ot I48.92 UNSPECIFIED ATRIAL FLUTTER 05/02/2018 JUDITH STATON MD Ot E78.2 MIXED HYPERLIPIDEMIA 05/02/2018 JUDITH STATON MD Ot I21.4 NON-ST ELEVATION (NSTEMI) MYOCARDIAL INF 05/02/2018 JUDITH STATON MD Ot I25.10 ATHSCL HEART DISEASE OF [place] CORONARY 05/02/2018 JUDITH STATON MD Ot I34.0 NONRHEUMATIC MITRAL (VALVE) INSUFFICIENC 05/02/2018 JUDITH STATON MD Ot I48.92 UNSPECIFIED ATRIAL FLUTTER 05/03/2018 DHRUV DO, JC Ot E03.9 HYPOTHYROIDISM, UNSPECIFIED 05/03/2018 DHRUV DO, JC Ot E78.00 PURE HYPERCHOLESTEROLEMIA, UNSPECIFIED 05/03/2018 BARTLETT DO, JC Ot E78.5 HYPERLIPIDEMIA, UNSPECIFIED 05/03/2018 DHRUV DO, JC Ot I12.9 HYPERTENSIVE CHRONIC KIDNEY DISEASE W ST 05/03/2018 DHRUV STRINGER JC Ot I16.0 HYPERTENSIVE URGENCY 05/03/2018 DHRUV STRINGER JC Ot I25.10 ATHSCL HEART DISEASE OF [place] CORONARY 05/03/2018 JC BARTLETT DO Ot I25.2 OLD MYOCARDIAL INFARCTION 05/03/2018 JC BARTLETT DO Ot I48.92 UNSPECIFIED ATRIAL FLUTTER 05/03/2018 JC BARTLETT DO Ot 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 05/03/2018 JC BARTLETT DO Ot K21.9 GASTRO-ESOPHAGEAL REFLUX DISEASE WITHOUT 05/03/2018 JC BARTLETT DO Ot K59.09 OTHER CONSTIPATION 05/03/2018 JC BARTLETT DO Ot M54.12 RADICULOPATHY, CERVICAL REGION 05/03/2018 JC BARTLETT DO Ot N18.9 CHRONIC KIDNEY DISEASE, UNSPECIFIED 05/03/2018 JC BARTLETT DO Ot R06.09 OTHER FORMS OF DYSPNEA 05/03/2018 NIKOLE BARTLETT DOI Ot R07.89 OTHER CHEST PAIN 05/03/2018 JC BARTLETT DO Ot R20.0 ANESTHESIA OF SKIN 05/03/2018 JC BARTLETT DO Ot R29.898 OTH SYMPTOMS AND SIGNS INVOLVING THE MUS 05/03/2018 JC BARTLETT DO Ot R60.9 EDEMA, UNSPECIFIED 05/03/2018 JC BARTLETT DO Ot Z79.899 OTHER TEST SPECIALIST (CURRENT) DRUG THERAPY 05/03/2018 JC BARTLETT DO Ot Z85.47 PERSONAL HISTORY OF MALIGNANT NEOPLASM O 05/03/2018 JC BARTLETT DO Ot Z92.21 PERSONAL HISTORY OF ANTINEOPLASTIC CHEMO 05/03/2018 JC BARTLETT DO Ot Z95.1 PRESENCE OF AORTOCORONARY BYPASS GRAFT Procedures There is no data. Results Test [...] 05/02/18 09:46 Myoglobin, serum 337.4 ng/mL 10.0-92.0 Myoglobin, serum - 05/02/18 16:01 Myoglobin, serum 157.2 ng/mL 10.0-92.0 Complete blood count (CBC) with automated white blood cell (WBC) differential - 05/03/18 05:25 Blood leukocytes automated count (number/volume) 8.3 10*3/uL 4.3-11.0 Blood erythrocytes automated count (number/volume) 4.19 10*6/uL 4.35-5.85 Venous blood hemoglobin measurement (mass/volume) 13.1 g/dL 13.3-17.7 Blood hematocrit (volume fraction) 38 % 40-54 Automated erythrocyte mean corpuscular volume 91 [foz_us] 80-99 Automated erythrocyte mean corpuscular hemoglobin (mass per erythrocyte) 31 pg 25-34 Automated erythrocyte mean corpuscular hemoglobin concentration measurement ( mass/volume) 35 g/dL 32-36 Automated erythrocyte distribution width ratio 13.5 % 10.0-14.5 Automated blood platelet count (count/volume) 182 10*3/uL 130-400 Automated blood platelet mean volume measurement 10.6 [foz_us] 7.4-10.4 Automated blood neutrophils/100 leukocytes 79 % 42-75 Automated blood lymphocytes/100 leukocytes 14 % 12-44 Blood monocytes/100 leukocytes 6 % 0-12 Automated blood eosinophils/100 leukocytes 0 % 0-10 Automated blood basophils/100 leukocytes 0 % 0-10 Blood neutrophils automated count (number/volume) 6.6 10*3 1.8-7.8 Blood lymphocytes automated count (number/volume) 1.2 10*3 1.0-4.0 Blood monocytes automated count (number/volume) 0.5 10*3 0.0-1.0 Automated eosinophil count 0.0 10*3/uL 0.0-0.3 Automated blood basophil count (count/volume) 0.0 10*3/uL 0.0-0.1 Comprehensive metabolic panel - 05/03/18 05:25 Serum or plasma sodium measurement (moles/volume) 138 mmol/L 135-145 Serum or plasma potassium measurement (moles/volume) 5.1 mmol/L 3.6-5.0 Serum or plasma chloride measurement (moles/volume) 116 mmol/L 98-107 Carbon dioxide 15 mmol/L 21-32 Serum or plasma anion gap determination (moles/volume) 7 mmol/L 5-14 Serum or plasma urea nitrogen measurement (mass/volume) 20 mg/dL 7-18 Serum or plasma creatinine measurement (mass/volume) 1.00 mg/dL 0.60-1.30 Serum or plasma urea nitrogen/creatinine mass ratio 20 NRG Serum or plasma creatinine measurement with calculation of estimated glomerular filtration rate > NRG Serum or plasma glucose measurement (mass/volume) 130 mg/dL 70-105 Serum or plasma calcium measurement (mass/volume) 7.6 mg/dL 8.5-10.1 Serum or plasma total bilirubin measurement (mass/volume) 0.3 mg/dL 0.1-1.0 Serum or plasma alkaline phosphatase measurement (enzymatic activity/volume) 34 U/L 40-136 Serum or plasma aspartate aminotransferase measurement (enzymatic activity/ volume) 35 U/L 5-34 Serum or plasma alanine aminotransferase measurement (enzymatic activity/volume ) 26 U/L 0-55 Serum or plasma protein measurement (mass/volume) 5.8 g/dL 6.4-8.2 Serum or plasma albumin measurement (mass/volume) 3.3 g/dL 3.2-4.5 CALCIUM CORRECTED 8.2 mg/dL 8.5-10.1 Lipid 1996 panel - 05/03/18 05:28 Serum or plasma triglyceride measurement (mass/volume) 94 mg/dL <150 Serum or plasma cholesterol measurement (mass/volume) 133 mg/dL < 200 Serum or plasma cholesterol in HDL measurement (mass/volume) 32 mg/ dL 40-60 Cholesterol in LDL [mass/volume] in serum or plasma by direct assay 84 mg/dL 1-129 Serum or plasma cholesterol in VLDL measurement (mass/volume) 19 mg/ dL 5-40 Encounters ACCT No. Visit Date/Time Discharge Status Pt. Type Provider Facility Loc./Unit Complaint [id number] 05/02/2018 11:25:00 05/03/2018 17:50:00 DIS Outpatient JC BARTLETT DO [facility] 4TH C5 TO C7 CERVICAL RADICULOPATHY,R ARM WEAKNESS,OLINDA [id number] 08/10/2017 08:54:00 08/10/2017 23:59:59 CLS Outpatient JUDITH STATON MD [facility] CARD I25.10,E78.2,I48.92, I21.4 [id number] 06/16/2016 09:09:00 06/16/2016 23:59:59 CLS Outpatient JUDITH STATON MD [facility] LAB ATRIAL FLUTTER, HYPERLIPIDEMIA [id number] 05/18/2016 12:22:00 05/18/2016 23:59:59 CLS Outpatient JUDITH STATON MD [facility] CARD ATRIAL FLUTTER,HLP, PERICARDIAL EFFUSION [id number] 09/24/2015 07:53:00 09/24/2015 23:59:59 CLS Outpatient JUDITH STATON MD [facility] CARD CAD,AFLUTTER, HLP, TOBACCO USE [id number] 05/01/2015 07:33:00 05/01/2015 09:30:00 DIS Outpatient EARL JONES MD [facility] SDC BARRETTS ESOPHAGUS [id number] 04/30/2015 05:51:00 04/30/2015 23:59:59 CLS Outpatient EARL JONES MD [facility] PREOP BARRETTS ESOPHAGUS [id number] 02/19/2015 09:57:00 04/01/2015 00:01:00 DIS Outpatient JUDITH STATON MD [facility] CARD AFIB,NONSTEMI [id number] 03/16/2015 00:09:00 03/16/2015 23:59:59 CLS Preadmit JUDITH STATON MD [facility] LAB ATRIAL FLUTTER [id number] 01/15/2015 08:46:00 03/15/2015 00:01:00 DIS Outpatient JUDITH STATON MD [facility] LAB ATRIAL FLUTTER [id number] 11/20/2014 10:41:00 11/24/2014 00:01:00 DIS Outpatient JUDITH STATON MD [facility] LAB [id number] 11/05/2014 13:42:00 11/05/2014 23:59:59 CLS Outpatient JUDITH STATON MD [facility] CARD [id number] 10/27/2014 10:19:00 10/27/2014 23:59:59 CLS Outpatient JUDITH STATON MD [facility] LAB [id number] 10/15/2014 11:45:00 10/17/2014 12:22:00 DIS Outpatient JUDITH STATON MD [facility] CR [id number] 08/14/2014 13:32:00 08/14/2014 23:59:59 CLS Outpatient OTHER, UNLISTED [facility] HH [id number] 07/07/2014 15:45:00 07/07/2014 16:53:00 DIS Inpatient EMY PEDROZA, ERI Steward [facility] ICU [id number] 11/07/2012 12:28:00 11/07/2012 23:59:59 CLS Outpatient SUNNI PEDROZA, JAYLON Paige [facility] [id number] 08/26/2014 10:18:00 Document Registration [id number] 08/20/2014 09:04:00 Document Registration [id number] 08/19/2014 18:54:00 Document Registration [id number] 08/19/2014 16:06:00 Document Registration [id number] 07/07/2014 14:00:00 Document Registration [id number] 07/18/2012 13:57:00 Document Registration [id number] 05/23/2011 07:00:00 Document Registration
--- NOTE | 2018-05-09 12:09 | Physician Query-Final Dx ---
ROSHAN MARTÍNEZ 05/09/18 1209: Final Diagnosis Give Final Diagnosis Please give Final Diagnosis JC BARTLETT DO 05/10/18 1120: Final Diagnosis Give Final Diagnosis Hypertension urgency ROSHAN MARTÍNEZ May 09, 2018 12:09 JC BARTLETT DO May 10, 2018 11:20
== END 2018-05-03 17:28 | disposition home or self-care (01) ==
LOC: EDUNIT# 06:34 → ER 06:35 → UNDOADMOB 11:25 → 4TH 11:25 → UNDODISOB 05-03 17:50
PROVIDERS: ADMIT Internal Medicine; ATTEND Internal Medicine
DX: M54.12 Radiculopathy, cervical region (principal); R29.898 Other symptoms and signs involving the musculoskeletal system; R07.89 Other chest pain; I25.10 Atherosclerotic heart disease of native coronary artery without angina pectoris; E78.00 Pure hypercholesterolemia, unspecified; I12.9 Hypertensive chronic kidney disease with stage 1 through stage 4 chronic kidney disease, or unspecified chronic kidney disease; N18.9 Chronic kidney disease, unspecified; R60.9 Edema, unspecified; R06.09 Other forms of dyspnea; E78.5 Hyperlipidemia, unspecified; I65.23 Occlusion and stenosis of bilateral carotid arteries; E03.9 Hypothyroidism, unspecified; I25.2 Old myocardial infarction; K21.9 Gastro-esophageal reflux disease without esophagitis; K59.09 Other constipation; I48.92 Unspecified atrial flutter; Z85.47 Personal history of malignant neoplasm of testis; Z92.21 Personal history of antineoplastic chemotherapy; Z95.1 Presence of aortocoronary bypass graft; Z79.899 Other long term (current) drug therapy; I16.0 Hypertensive urgency; R20.0 Anesthesia of skin
CPT/HCPCS: 36415; 71045; 72125; 72141; 78452; 80053; 80061; 82550; 83735; 83874; 84484; 85025; 85379; 85610; 85730; 93005; 93017; 93041; 96361; 96374; 96375; G0378

== ENCOUNTER 2020-04-14 22:45 | Emergency (ER) | payer BC ==
[~2020-04-14] VITALS: Ht 195.5 cm; Wt 106.5 kg
[~2020-04-14 22:45] MED LIST changes: +ASPI325T32 PO; +CALC200T33 PO; +ESOM20CA58 PO; +LEVO88TA54 PO; +METH4TAB PO; +ROSU10TA28 PO
[2020-04-14] MEDS ORDERED: ASPIRIN 81 MG CHEW (CHILDREN'S ASA) PO ONE (23:00)
--- NOTE | 2020-04-14 23:28 | ED Chest Pain ---
General Chief Complaint: General Problems/Pain Stated Complaint: CHILLS/WEAKNESS EPISODE Nursing Triage Note: TO ED VIA POV AND AMBULATORY TO ROOM 5 WITH C/O WALKING DOG HEALTH AND HUMAN PERFORMANCE PROFESSOR AND ABOUT 1 MILE IN HE FELT COLD/CLAMMY. DENIES ANY SOA, CP, FEVER. TAKES ASA DAILY AND TOOK 325 TONIGHT. Nursing Sepsis Screen: No Definite Risk Source: patient Exam Limitations: no limitations History of Present Illness Date Seen by Provider: Apr 14, 2020 Time Seen by Provider: 22:47 Initial Comments Here with report of acute onset of feeling cold and clammy while walking his dog. Denies chest pain or shortness of air with that. Does have history of quadruple bypass as well as cancer. Noted that his blood pressure was a little higher tonight but he is had pulse rates drop into the 40s at home. He did take a full dose aspirin tonight. Timing/Duration: 1 hour, changing over time, gone now Severity/Quality: moderate, other (weakness without chest pain) Location: other (None) Radiation: no radiation Prior CP/Workup: cardiac cath, echocardiography, heart attack Modifying Factors: worse with exercise; improves with rest ASA po HEALTH AND HUMAN PERFORMANCE PROFESSOR: Yes NTG SL HEALTH AND HUMAN PERFORMANCE PROFESSOR: No Associated Symptoms: No abdominal pain, No back pain; diaphoresis, fatigue; No headache, No heartburn, No nausea/vomiting, No shortness of breath; weakness Allergies and Home Medications Allergies Coded Allergies: No Known Drug Allergies (Unverified , 10/02/09) Home Medications Aspirin 325 Mg Tablet.dr, 325 MG PO HS, (Reported) Calcium Carbonate 200 Mg Tab.chew, 200 MG PO TID PRN for INDIGESTION, (Reported) Esomeprazole Magnesium 20 Mg Capsule.dr, 20 MG PO DAILY, (Reported) Levothyroxine Sodium 88 Mcg Tablet, 88 MCG PO DAILY, (Reported) Methylprednisolone 4 Mg Tab.ds.pk, 4 MG PO UD PER DOSE PACK INSTRUCTIONS Prescribed by: JC BARTLETT on 05/03/181727 Metoprolol Tartrate 25 Mg Tablet, 25 MG PO BID Prescribed by: JC BARTLETT on 05/03/181727 Rosuvastatin Calcium 10 Mg Tablet, 10 MG PO HS, (Reported) [Testosterone] , TOP Q DAY, (Reported) Patient Home Medication List Home Medication List Reviewed: Yes Review of Systems Review of Systems Constitutional: see HPI; No chills; diaphoresis; No fever EENTM: No Nose Congestion, No Throat Pain Respiratory: Denies Cough, Denies Shortness of Air Cardiovascular: Denies Chest Pain, Denies Edema; Lightheadedness Gastrointestinal: Denies Diarrhea, Denies Nausea, Denies Vomiting Genitourinary: No Symptoms Reported Musculoskeletal: No back pain, No muscle pain Skin: no symptoms reported Psychiatric/Neurological: No Symptoms Reported All Other Systems Reviewed Negative Unless Noted: Yes Past Wpvumeb-Oagvdp-Zluczi Hx Past Med/Social Hx: Reviewed Nursing Past Med/Soc Hx Patient Social History Alcohol Use: Denies Use Recreational Drug Use: No Smoking Status: Never a Smoker Recent Foreign Travel: No Contact w/Someone Who Travel: No Recent Infectious Disease Expo: No Recent Hopitalizations: No Physical Abuse: No Sexual Abuse: No Mistreated: No Fear: No Immunizations Up To Date Tetanus Booster (TDap): Unknown Seasonal Allergies Seasonal Allergies: No Past Medical History Surgeries: Yes (CARDIOVERSION, PERICARDIAL WINDOW, THORACENTESIS) Cardiac, CABG, Orthopedic, Testicular Respiratory: No Cardiac: Yes Coronary Artery Disease, Heart Attack, High Cholesterol Neurological: No Neuropathy Reproductive Disorders: No Gastrointestinal: Yes Gastroesophageal Reflux, Chronic Constipation Musculoskeletal: No Endocrine: Yes Hypothyroidsim Cancer: Yes Testicular Did You Recieve Any Treatments: Yes What Type of Treatment Did You: Chemotherapy, Surgical Intervention Psychosocial: No Integumentary: No Blood Disorders: No Family Medical History Reviewed Nursing Family Hx No Pertinent Family Hx, Cancer, Hypertension Physical Exam Vital Signs Vital Signs - First Documented 04/14/20 22:50 Temp 36.0 Pulse 57 Resp 16 B/P (MAP) 166/113 (130) O2 Delivery Room Air Capillary Refill : Less Than 3 Seconds Height, Weight, BMI Height: 6'5.00" Weight: 241lbs. 0.0oz. 109.688274gw; 27.00 BMI Method:Stated General Appearance: No Apparent Distress, WD/WN HEENT: PERRL/EOMI Neck: Non Tender, Supple Respiratory: Lungs Clear, Normal Breath Sounds Cardiovascular: Regular Rate, Rhythm, No Murmur Gastrointestinal: Non Tender, Soft Extremity: Normal Range of Motion, Non Tender Neurologic/Psychiatric: Alert, Oriented x3 Skin: Normal Color, Warm/Dry Progress/Results/Core Measures Results/Orders Lab Results Laboratory Tests Test 04/14/20 22:58 04/15/20 01:00 Range/Units White Blood Count 7.0 4.3-11.0 10^3/uL Red Blood Count 5.52 4.30-5.52 10^6/uL Hemoglobin 16.5 13.3-17.7 g/dL Hematocrit 49 40-54 % Mean Corpuscular Volume 89 80-99 fL Mean Corpuscular Hemoglobin 30 25-34 pg Mean Corpuscular Hemoglobin Concent 34 32-36 g/dL Red Cell Distribution Width 13.4 10.0-14.5 % Platelet Count 173 130-400 10^3/uL Mean Platelet Volume 11.4 9.0-12.2 fL Immature Granulocyte % (Auto) 0 % Neutrophils (%) (Auto) 52 42-75 % Lymphocytes (%) (Auto) 37 12-44 % Monocytes (%) (Auto) 9 0-12 % Eosinophils (%) (Auto) 2 0-10 % Basophils (%) (Auto) 1 0-10 % Neutrophils # (Auto) 3.6 1.8-7.8 10^3/uL Lymphocytes # (Auto) 2.6 1.0-4.0 10^3/uL Monocytes # (Auto) 0.6 0.0-1.0 10^3/uL Eosinophils # (Auto) 0.1 0.0-0.3 10^3/uL Basophils # (Auto) 0.1 0.0-0.1 10^3/uL Immature Granulocyte # (Auto) 0.0 0.0-0.1 10^3/uL Prothrombin Time 13.0 12.2-14.7 SEC INR Comment 0.9 0.8-1.4 Activated Partial Thromboplast Time 26 24-35 SEC D-Dimer 0.40 0.00-0.49 UG/ML Sodium Level 142 135-145 MMOL/L Potassium Level 4.3 3.6-5.0 MMOL/L Chloride Level 108 H 98-107 MMOL/L Carbon Dioxide Level 22 21-32 MMOL/L Anion Gap 12 5-14 MMOL/L Blood Urea Nitrogen 23 H 7-18 MG/DL Creatinine 1.42 H 0.60-1.30 MG/DL Estimat Glomerular Filtration Rate 51 BUN/Creatinine Ratio 16 Glucose Level 99 70-105 MG/DL Calcium Level 8.7 8.5-10.1 MG/DL Corrected Calcium 8.6 8.5-10.1 MG/DL Magnesium Level 2.0 1.6-2.4 MG/DL Total Bilirubin 0.6 0.1-1.0 MG/DL Aspartate Amino Transf (AST/SGOT) 32 5-34 U/L Alanine Aminotransferase (ALT/SGPT) 33 0-55 U/L Alkaline Phosphatase 56 40-136 U/L Myoglobin 157.4 H 10.0-92.0 NG/ML Troponin I < 0.028 < 0.028 <0.028 NG/ML Total Protein 6.9 6.4-8.2 GM/DL Albumin 4.1 3.2-4.5 GM/DL TSH [place] Testing 4.47 0.35-4.94 UIU/ML My Orders Orders - BRAXTON ORR MD Cbc With Automated Diff (04/14/20 22:48) Magnesium (04/14/20 22:48) Chest 1 View, Ap/Pa Only (04/14/20 22:48) Ekg Tracing (04/14/20 22:48) Comprehensive Metabolic Panel (04/14/20 22:48) Myoglobin Serum (04/14/20 22:48) Protime With Inr (04/14/20 22:48) Partial Thromboplastin Time (04/14/20 22:48) O2 (04/14/20 22:48) Monitor-Rhythm Ecg Trace Only (04/14/20 22:48) Lipid Panel (04/15/20 06:00) Ed Iv/Invasive Line Start (04/14/20 22:48) Troponin I (04/14/20 22:48) Aspirin Chewable Tablet (Baby Aspirin Ch (04/14/20 23:00) Fibrin Degradation Products (04/14/20 22:58) Thyroid Analyzer (04/14/20 23:31) Troponin I (04/15/20 00:51) Clonidine Tablet (Catapres Tablet) (04/15/20 01:45) Medications Given in ED Current Medications Medications Dose Ordered Sig/Peyton Route Start Time Stop Time Status Last Admin Dose Admin Clonidine HCl 0.1 mg ONCE ONCE PO 04/15/20 01:45 04/15/20 01:46 DC 04/15/20 01:52 0.1 MG Vital Signs/I&O 10/13/20 22:50 Temp 36.0 Pulse 57 Resp 16 B/P (MAP) 166/113 (130) O2 Delivery Room Air Blood Pressure Mean: 130 Progress Progress Note : Progress Note Seen and evaluated. IV, labs, EKG and chest x-ray ordered. ASA ordered but canceled after patient reported taking aspirin at home. Blood pressure initially high but we will monitor that. Initial EKG does not show any significant abnormalities and certainly not ST elevation PA. Patient reassured. Monitor patient. 0200: We have repeated troponin and it is negative as well as the first one. Heart rate is been noted to be fairly persistently and consistently in the 40s to low 50s. He is not symptomatic during this time frame. In fact, he is actually hypertensive. He denies chest pain or breathing problems. Denies dizziness or sweating. We did give clonidine 0.1 mg by mouth for blood pressure in the 160s to 170s over low 100s. This seems to have helped some. Patient is on metoprolol 50 mg by mouth twice a day. This may need to be adjusted. I did offer admission to the patient and he would prefer to go home and call Dr. Sampson first thing in the morning. He feels confident that he will be able to get in to his office and that is a reasonable approach. I will send a copy of the chart to Dr. Sampson and have instructed the patient to return for any concerns. We did discuss risk and benefits and patient elected to pursue outpatient therapy. Discharged home with return precautions. Patient verbalize understanding of instructions and agreement with plan. Initial ECG Impression Date: Apr 14, 2020 Initial ECG Impression Time: 22:48 Initial ECG Rate: 64 Initial ECG Rhythm: Normal Sinus Comment Sinus rhythm with normal axis. No evidence of ST elevation PA. Inferior infarct noted and similar to previous of 05/02/18. Interpreted by me. Diagnostic Imaging Diagonstic Imaging: Xray Plain Films/CT/US/NM/MRI: chest Comments No acute findings Reviewed: Reviewed by Me Departure Impression Primary Impression: Hypertension Qualified Codes: I10 - Essential (primary) hypertension Additional Impression: Bradycardia with 41-50 beats per minute Disposition: 01 HOME, SELF-CARE Condition: Stable Departure-Patient Inst. Decision time for Depature: 02:16 Referrals: JUDITH SAMPSON MD,JAYLON Paige MD (PCP/Family) Primary Care Physician Patient Instructions: Bradycardia, High Blood Pressure in Adults Add. Discharge Instructions: All discharge instructions reviewed with patient and/or family. Voiced understanding. Follow-up with Dr. Sampson today for recheck and further evaluation related to your blood pressure and your heart rate. Call his office first thing in the morning for appointment. Return to the ER for chest pain, weakness, sweating, vomiting, breathing problems or other concerns as needed. Copy Copies To 1: JUDITH SAMPSON MD, TIMOTHY D MD Apr 14, 2020 23:28
[2020-04-14 23:34] LABS: BASOPHILS # (AUTO) 0.1 10^3/uL (0.0-0.1); BASOPHILS % (AUTO) 1 % (0-10); EOSINOPHILS # (AUTO) 0.1 10^3/uL (0.0-0.3); EOSINOPHILS % (AUTO) 2 % (0-10); HEMATOCRIT 49 % (40-54); HEMOGLOBIN 16.5 g/dL (13.3-17.7); LYMPHOCYTES # (AUTO) 2.6 10^3/uL (1.0-4.0); LYMPHOCYTES % (AUTO) 37 % (12-44); MEAN CORPUSCULAR HEMOGLOBIN 30 pg (25-34); MEAN CORPUSCULAR HGB CONC 34 g/dL (32-36); MEAN CORPUSCULAR VOLUME 89 fL (80-99); MEAN PLATELET VOLUME 11.4 fL (9.0-12.2); MONOCYTES # (AUTO) 0.6 10^3/uL (0.0-1.0); MONOCYTES % (AUTO) 9 % (0-12); NEUTROPHILS # (AUTO) 3.6 10^3/uL (1.8-7.8); NEUTROPHILS % (AUTO) 52 % (42-75); PLATELET COUNT 173 10^3/uL (130-400)
[2020-04-14 23:38] LABS: ALBUMIN 4.1 GM/DL (3.2-4.5); BILIRUBIN,TOTAL 0.6 MG/DL (0.1-1.0); CALCIUM 8.7 MG/DL (8.5-10.1); CREATININE SERUM 1.42 MG/DL (0.60-1.30); POTASSIUM 4.3 MMOL/L (3.6-5.0); TOTAL PROTEIN 6.9 GM/DL (6.4-8.2)
[2020-04-14 23:41] LABS: FIBRIN DEGRADATION PRODUCTS 0.4 UG/ML (0.00-0.49); INR 0.9 (0.8-1.4)
[2020-04-15] MEDS ORDERED: cloNIDine 0.1 MG (CATAPRES) TAB PO ONE (01:45)
[2020-04-15 02:38] VITALS: BP 152/91
--- NOTE | 2020-04-15 06:36 | Diagnostic Imaging Report ---
INDICATION: Chest pain walking the dog for approximately 1 mile felt cold and clammy. COMPARISON STUDY: Chest from 05/02/2018. FINDINGS: Portable upright view of the chest demonstrates previous coronary artery bypass graft changes. Some atelectasis or scarring along the left heart border is stable. Emphysematous changes are again identified. There are no focal infiltrates. Heart size and vascularity are normal. IMPRESSION: There are no acute findings. Dictated by: Dictated on workstation # [id number]
== END 2020-04-15 02:40 | disposition home or self-care (01) ==
LOC: EDUNIT# 22:45 → ER 22:47
DX: I10 Essential (primary) hypertension (principal); R00.1 Bradycardia, unspecified; I25.2 Old myocardial infarction; K21.9 Gastro-esophageal reflux disease without esophagitis; E03.9 Hypothyroidism, unspecified; E78.00 Pure hypercholesterolemia, unspecified; Z85.47 Personal history of malignant neoplasm of testis; Z95.1 Presence of aortocoronary bypass graft; Z79.890 Hormone replacement therapy; Z79.82 Long term (current) use of aspirin; Z79.52 Long term (current) use of systemic steroids
CPT/HCPCS: 36415; 71045; 80053; 83735; 83874; 84443; 84484; 85025; 85379; 85610; 85730; 93005; 93041

== ENCOUNTER → 2020-05-06 | Outpatient (CLI) | payer BC ==
[~2020-05-06] VITALS: Ht 195 cm; Wt 108.0 kg
[~2020-05-06] MED LIST changes: +CATHETER FLUSH 10 ML SYR IV PRN
[2020-05-07 07:59] VITALS: BP 152/102
--- NOTE | 2020-05-07 07:59 | Cardiology Stress Test Report ---
Stress Test Report Date of Procedure/Referring: Date of Procedure: May 07, 2020 PCP Erica Cook Admitting Physician Saqib Benavidez MD Indications: CP Baseline Heart Rate: 65 Baseline Blood Pressure: Blood Pressure Systolic: 152 Blood Pressure Diastolic: 102 Baseline EKG: Baseline EKG: normal sinus rhythm Summary: After explaining the procedure and details to the patient, he signed the consent and was brought to the stress nuclear laboratory. Patient exercised on standard Davian protocol, EKG, heart rate and blood pressure were monitored continuously, resting and stress doses of radio tracer were injected, imaging was acquired and reviewed in the short axis, horizontal long axis and vertical long axis views Patient was able to exercise for a total of 6 minutes on Davian protocol, METs 7.3 Maximum heart rate 144 Maximum blood pressure 191/89 Stress EKG, Minimal nondiagnostic changes Recovery EKG, Return to baseline TID: 1.08 SSS: 5 SDS: 1 EF: 58 Conclusion: 1. Good exercise tolerance for total of 6 minutes on standard Davian protocol, 7.3 METs achieving 90 percent of maximum expected heart rate 2. Baseline hypertension with hypertensive response to exercise, peak blood pressure 191/89 3. Minimal nondiagnostic EKG changes with exercise returned to baseline during recovery 4. Mild decreased uptake at the apex and mid to apical anterolateral and inferolateral wall, very minimal reversibility, no significant ischemia or infarction 5. Normal left ventricular size, EF 58 percent JUDITH STATON MD May 07, 2020 07:59
== END ==
LOC: CARD 12:00
PROVIDERS: ATTEND Physician Assistant
DX: I25.10 Atherosclerotic heart disease of native coronary artery without angina pectoris (principal); I10 Essential (primary) hypertension; E78.2 Mixed hyperlipidemia
CPT/HCPCS: 78452; 93017; 93306; A9502

== ENCOUNTER 2023-06-07 07:11 | Day surgery (SDC) | payer BC ==
[~2023-06-07] VITALS: Ht 195.6 cm; Wt 104.1 kg
[2023-06-07] VITALS (10 sets, daily range): BP systolic 112–147; BP diastolic 75–87
[~2023-06-07 07:11] MED LIST changes: -CATHETER FLUSH 10 ML SYR IV PRN
[2023-06-07] MEDS ORDERED: LIDOCAINE 1% INJ 20 ML VIAL ONE (07:16)
[2023-06-07] MEDS ORDERED: NS IV 1000 ML 1,000 ML ONE (07:16)
[2023-06-07] MEDS ORDERED: HEParin (CATH LAB) 2,000 ML IV ONE (07:16)
[2023-06-07] MEDS ORDERED: NS IV 1000 ML 1,000 ML IV SCH ×2 (07:30→10:30)
[2023-06-07 07:38] LABS: HEMATOCRIT 52 % (40-54); HEMOGLOBIN 16.9 g/dL (13.3-17.7); MEAN CORPUSCULAR HEMOGLOBIN 28 pg (25-34); MEAN CORPUSCULAR HGB CONC 32 g/dL (32-36); MEAN CORPUSCULAR VOLUME 86 fL (80-99); MEAN PLATELET VOLUME 10.6 fL (9.0-12.2); PLATELET COUNT 193 10^3/uL (130-400); WHITE BLOOD COUNT 6.8 10^3/uL (4.3-11.0)
[2023-06-07 07:51] LABS: ALBUMIN 4.1 GM/DL (3.2-4.5); POTASSIUM 4.1 MMOL/L (3.6-5.0)
[2023-06-07 07:52] LABS: PROTHROMBIN TIME PATIENT 13.1 SEC (12.2-14.7)
[2023-06-07 07:54] LABS: TOTAL PROTEIN 6.7 GM/DL (6.4-8.2)
[2023-06-07 07:55] LABS: BILIRUBIN,TOTAL 0.7 MG/DL (0.1-1.0)
[2023-06-07 07:57] LABS: CREATININE SERUM 1.35 MG/DL (0.60-1.30)
--- NOTE | 2023-06-07 07:59 | Diagnostic Imaging Report ---
INDICATION: Pre-cath. Coronary artery disease. COMPARISON: 04/14/2020. FINDINGS: Sternal wires midline. The lungs clear although hyperexpanded. No infiltrate, effusion or pneumothorax. No edema. IMPRESSION: Clear hyperexpanded lungs with midline sternal wires. Dictated by: Dictated on workstation # [id number]
[2023-06-07] MEDS ORDERED: LISI10TA25 PO (08:01)
[2023-06-07] MEDS ORDERED: NAPR220T66 PO (08:01)
[2023-06-07] MEDS ORDERED: EZET10TA49 PO (08:01)
--- NOTE | 2023-06-07 09:14 | Cardiology History & Physical ---
HPI-Cardiology Cardiology Consultation Date of Consultation 06/07/23 Date of Admission Time Seen by Provider: 09:14 Indication: Coronary artery disease HPI 63-year-old gentleman with history of coronary artery disease, CABG, had an abnormal stress test, scheduled for cardiac catheterization PMH-Cardiology Immunizations Up To Date Tetanus Booster (DTap): Unknown Seasonal Allergies Seasonal Allergies: No Surgeries Yes (CARDIOVERSION, PERICARDIAL WINDOW, THORACENTESIS) Respiratory No Cardiovascular Yes Neurological No Neuropathy Reproductive System Hx Reproductive Disorders: No Gastrointestinal Yes Gastroesophageal Reflux, Chronic Constipation Musculoskeletal No Endocrine Yes Hypothyroidsim Cancer Yes Testicular Did You Recieve Any Treatments: Yes Type of Treatment: Chemotherapy, Surgical Intervention Psychosocial No Integumentary No Blood Transfusions No Social History Patient Social History Marrital Status: Dip or chew tobacco?: No Family Hx Significant Family History: No Pertinent Family Hx, Cancer, Hypertension ROS-Cardiology Review of Systems General: No Chills, No Night Sweats, No Fatigue, No Malaise, No Appetite HEENT: No Head Aches, No Visual Changes, No Eye Pain, No Ear Pain, No Dyspha glenn, No Sinus Congestion, No Post Nasal Drip, No Sore Throat Pulmonary: No Dyspnea, No Cough, No Pleuritic Chest Pain Cardiovascular: No: Chest Pain, Palpitations, Orthopnea, Paroxysmal Noc. Dyspnea, Edema, Lt Headedness Gastrointestinal: No: Nausea, Vomiting, Abdominal Pain, Diarrhea, Constipation, Melena, Hematochezia Genitourinary: No Dysuria, No Frequency, No Incontinence, No Hematuria, No Retention Musculoskeletal: No: neck pain, shoulder pain, arm pain, back pain, hand pain, leg pain, foot pain Neurological: No: Weakness, Numbness, Incoordination, Change in speech, Confusion, Seizures Home Medications & Allergies Allergies: Coded Allergies: No Known Drug Allergies (Unverified , 10/02/09) Home Medication List Reviewed: Yes Exam-Cardiology Vital Signs Vital Signs Date Time Temp Pulse Resp B/P (MAP) Pulse Ox O2 Delivery O2 Flow Rate FiO2 06/07/23 07:29 36.0 79 16 147/87 (107) 99 Room Air Exam General Appearance: Alert, Oriented X3, Cooperative, No Acute Distress HEENT: Atraumatic, PERRLA Respiratory: Clear to Auscultation, Normal Air Movement Cardiovascular: Regular Rate, Normal S1, Normal S2, No Murmurs Abdominal: Normal Bowel Sounds, Soft, No Tenderness, No Hepatosplenomegaly, No Masses Extremities: No Clubbing, No Cyanosis, No Edema, Normal Pulses, No Te nderness/Swelling Skin: No Rashes, No Breakdown, No Significant Lesion Neuro: Normal Gait, Normal Speech, Strength at 5/5 X4 Ext, Normal Tone, Sensation Intact Psych/Mental Status: Mental Status NL, Mood NL Results Labs Labs Laboratory Tests 06/07/23 07:30: White Blood Count 6.8, Red Blood Count 6.05H, Hemoglobin 16.9, Hematocrit 52, Mean Corpuscular Volume 86, Mean Corpuscular Hemoglobin 28, Mean Corpuscular Hemoglobin Concent 32, Red Cell Distribution Width 17.2H, Platelet Count 193, Mean Platelet Volume 10.6, Prothrombin Time 13.1, INR Comment 1.0, Activated Partial Thromboplast Time 26, Sodium Level 139, Potassium Level 4.1, Chloride Level 105, Carbon Dioxide Level 26, Anion Gap 8, Blood Urea Nitrogen 27H, Creatinine 1.35H, Estimat Glomerular Filtration Rate 59, BUN/Creatinine Ratio 20, Glucose Level 102, Calcium Level 9.0, Corrected Calcium 8.9, Total Bilirubin 0.7, Aspartate Amino Transf (AST/SGOT) 40H, Alanine Aminotransferase (ALT/SGPT) 46, Alkaline Phosphatase 46, Total Protein 6.7, Albumin 4.1, Triglycerides Level 103, Cholesterol Level 141, LDL Cholesterol Direct 91, VLDL Cholesterol 21, HDL Cholesterol 41 A/P-Cardiology Admission Diagnosis Coronary artery disease Hypertension Hyperlipidemia Paroxysmal atrial flutter Admission Status: Observation Assessment/Plan Abnormal stress test on 03/27/23 showing fair exercise tolerance for a total of 6 minutes on standard Davian protocol, 7.3 METS achieving 87% of maximal expected heart rate. Appropriate heart rate response to exercise with occasional PVCs and ventricular trigeminy noted during recovery. Hypertensive response to exercise with peak blood pressure 180/94 return to baseline during recovery. Nondiagnostic EKG changes with exercise return to baseline during recovery Patchy uptake with fixed defect at the mid anterior wall and reversible ischemia involving the inferior wall and inferolateral wall. Normal left ventricular size, ejection fraction 51%. SSS 11, SDS 8, TID 0.96. Discussed management plan, recommend [facility] for further evaluation Episode of dizziness and clamminess while walking his dog last night, was evaluated in the ER, noted to be bradycardic. Lopressor was discontinued. Patient reports he feeling well. No new complaint Transient episode of bradycardia while on beta-blockers, currently he is off beta-blockers and doing well Coronary artery disease, history of non-ST elevation myocardial infarction, CABG ?4 in 2014 using DELVALLE to distal LAD, vein graft to OM1, vein graft to OM 2, vein graft to POV in 2014. Status post pericardial effusion, pleural effusion, Repeat echocardiogram was done in August 2017 showing normal left ventricular size with ejection fraction 6065 percent, left atrium is mildly dilated, mild MR and TR, PA 20 mmHg. No pericardial effusion on most recent echo Paroxysmal atrial flutter postoperatively, underwent electrical cardioversion, treated with amiodarone and Coumadin, currently off both medication he was seen by Dr. Serrano. No further episodes were reported. Mild to moderate mitral and aortic regurgitation, last echo was done in Mar 2023, unchanged from 2019 study. [id number] is 1, yearly risk of stroke without oral anticoagulation is 1.3 percent, he has been on aspirin daily, amiodarone was discontinued and doing well. No other symptoms. I will continue monitoring at this time. Hypertension, good control. Continue to monitor. Maintained on lisinopril 10 mg daily Hyperlipidemia, patient had lipid profile done with his primary care physician. I will try to obtain copy of the results Mild bilateral carotid stenosis Hypothyroidism, maintained on levothyroxine, followed and managed by primary care physician History of orchiectomy secondary to testicular cancer, done in 1994. Maintained on testosterone, Continue to monitor. Chronic renal insufficiency, improved, continue to monitor Peripheral edema, improved, continue to monitor. No changes Dyspnea on exertion, improved. Continue to monitor. JUDITH STATON MD Jun 07, 2023 09:14
--- NOTE | 2023-06-07 09:15 | Cardiac Procedure Note-CS/ASA ---
Pre-Procedure Note Pre-Op Procedure Note Date of Available H&P: Jun 07, 2023 Date H&P Reviewed: Jun 07, 2023 Time H&P Reviewed: 09:14 History & Physical: H&P Reviewed, Patient Examed, No changes noted Pre-Operative Diagnosis: CAD Moderate Sedation PreProcedure Time 09:14 ASA Score 3 Airway Lungs Heart ASA score ASA 1: a normal healthy patient ASA 2: a patient with a mild systemic disease (mid diabetes, controlled hypertension, obesity ASA 3: a patient with a severe systemic disease that limits activity (angina, COPD, prior Myocardial infarction) ASA 4: a patient with an incapacitating disease that is a constant threat to life (CHF, renal failure) ASA 5: a moribund patient not expected to survive 24 hrs. (ruptured aneurysm) ASA 6: a declared brain- patient whose organs are being harvested. For emergent operations, add the letter E after the classification Mallampati Classification Grade 3 Sedation Plan Analgesia, Amnesia, Plan communicated to team members, Discussed options with patient/fam, Discussed risks with patient/fam The patient is an appropriate candidate to undergo the planned procedure, sedation, and anesthesia. The patient immediately re-assessed prior to indication. JUDITH STATON MD Jun 07, 2023 09:15
[2023-06-07] MEDS ORDERED: fentaNYL INJECTION 100 MCG/2 ML VIAL ONE (09:22)
[2023-06-07] MEDS ORDERED: MIDAZOLAM INJ 5 MG/5 ML VIAL ONE (09:23)
[2023-06-07] MEDS ORDERED: ROSU20TA73 PO (10:25)
--- NOTE | 2023-06-07 10:25 | Discharge Inst-Post CATH ---
Discharge Inst-CATH/EP Problems Reviewed?: Yes Post Cardiac Cath/EP D/C Inst Follow Up/Plan Appointment with Dr. Sampson's office in 2 to 4 weeks <b>CARDIAC CATH/EP PROCEDURE DISCHARGE INSTRUCTIONS</b> ACTIVITY * Go Home directly and rest. * Limit activity of the leg (or wrist if it was used) for 7 days including aer obics, swimming, jogging, bicycling, etc. * Restrict stair-climbing for 7 days if possible, if not, climb up with your non-cath leg, then bring together on the same step. * Avoid lifting, pushing, pulling or excessive movement of the affected extremi ty for 7 days. * Customary sexual activity may be resumed after 2 days-use caution not to use a position that strains or causes pain to the affected extremity. * No driving for 24 hours. * NO SMOKING. * Avoid straining for bowel movements for 7 days. * Gentle walking on level ground is allowed. * Returning to work will depend on the type of procedure and the results. Your doctor will discuss this with you. CALL YOUR DOCTOR FOR ANY OF THE FOLLOWING: *If bleeding from the puncture site occurs- Apply gentle pressure to site with clean cloth and call your doctor or EMS. * If a knot or lump forms under the skin, increases in size, or causes pain. * If bruising appears to be worsening or moving further down your leg instead of disappearing. * Temperature above 101 F. CARE OF YOUR GROIN INCISION; * Bruising or purple discoloration of the skin near the puncture site is common. * You may shower only, no bathtub bathing for 5 days. Be careful to avoid slipping as your leg may feel stiff. * If a closure device was used on your femoral artery, please see the attached guide regarding care of the device and your leg. * Leave dressing on FOR 24 hours. CARE OF YOUR WRIST INCISION; * Bruising or purple discoloration of the skin near the puncture site is common. * You may shower. * DO NOT submerge wrist. * Leave dressing on FOR 24 hours. JUDITH SAMPSON MD Jun 07, 2023 10:25
[2023-06-07] MEDS ORDERED: PATIENT MAY USE OWN MEDS, ALL PO SCH (10:30)
--- NOTE | 2023-06-07 10:31 | Cardiac Cath Report ---
Cardiac Cath Report Physician (s)/[employer] Operator (s) Physician JUDITH STATON MD Pre-Procedure Diagnosis Pre-Procedure Diagnosis: CAD Post-Procedure Note Procedure Start Date: Jun 07, 2023 Name of Procedure: Left heart catheterization Vein graft angiogram DELVALLE angiogram Findings/Procedure Note PROCEDURE NOTE: 63-year-old gentleman with history of coronary artery disease, CABG, had an abnormal stress test, cardiac catheterization was advised After explaining the procedure to the patient, all pros and cons were explained, all questions were answered. The patient signed the consent and then he was placed on the cardiac catheterization laboratory. Groin was prepped SL fashion local anesthesia was used. Sheath placed in the right femoral artery, Abby left catheter and engaged the left coronary system then Abby right advanced to the left ventricular cavity, pressure was measured no left ventriculogram was done, pullback LV to aorta was done, engaged the right coronary artery then the vein graft and advanced to the internal mammary artery and angiogram was done. At the end of the procedure the sheath was removed. Closure device was deployed FINDINGS: Hemodynamics LV 134/15, end-diastolic pressure of 15 Aorta 115/63, mean of 58 ANATOMY: Left Main is occluded distally Left Anterior Descending is occluded proximally, the DELVALLE to the LAD is patent Left Circumflex is occluded proximally, the vein graft to the obtuse marginal branch is patent Right Coronary Artery is occluded proximally and the vein graft to the right coronary artery is occluded. There are some collateral filling the PDA DELVALLE angiogram showed patent DELVALLE to LAD with small vessel disease distally Vein Graft evaluation showed 2 markers of vein graft Vein graft to the first obtuse marginal branch is patent with filling retrograde the second obtuse marginal branch, probably the branch of that vein graft to the second obtuse marginal branch is occluded Vein graft to the right coronary artery is occluded LV Gram was not done, pressure was measured CONCLUSION: Occluded distal left main and proximal right coronary artery, the DELVALLE to the LAD is patent, vein graft to the obtuse marginal branch is patent. The vein graft to the second obtuse marginal branch is occluded but the second obtuse marginal branch is getting filled retrograde by the first obtuse marginal branch. The right coronary artery and the vein graft to the right coronary artery are occluded, there are some collateral filling the distal right PDA Normal left ventricular end-diastolic pressure DISCUSSION AND RECOMMENDATION: Continue to maximize medical therapy, I am increasing rosuvastatin to 20 mg daily trying to achieve target LDL Anesthesia Type: Conscious Sedation Estimated blood loss (mL): 15 ml Contrast Amount: 41 ml Total Radiation Dose: 362 mGy Post-Procedure Diagnosis Post-operative diagnosis: Chest pain Coronary artery disease Hypertension Hyperlipidemia JUDITH STATON MD Jun 07, 2023 10:31
== END 2023-06-07 14:35 | disposition home or self-care (01) ==
LOC: CATH 07:11 → SDC 10:43 → CATH 14:35
PROVIDERS: ATTEND Internal Medicine Cardiovascular Disease
DX: I25.10 Atherosclerotic heart disease of native coronary artery without angina pectoris (principal); I48.0 Paroxysmal atrial fibrillation; I12.9 Hypertensive chronic kidney disease with stage 1 through stage 4 chronic kidney disease, or unspecified chronic kidney disease; N18.9 Chronic kidney disease, unspecified; E78.5 Hyperlipidemia, unspecified; R94.39 Abnormal result of other cardiovascular function study; I08.0 Rheumatic disorders of both mitral and aortic valves; I65.23 Occlusion and stenosis of bilateral carotid arteries; E03.9 Hypothyroidism, unspecified; R60.0 Localized edema; R06.09 Other forms of dyspnea; Z95.1 Presence of aortocoronary bypass graft; Z86.79 Personal history of other diseases of the circulatory system; Z79.890 Hormone replacement therapy; Z90.79 Acquired absence of other genital organ(s)
CPT/HCPCS: 71045; 80053; 80061; 85027; 85610; 85730; 87081; 93005; 93459; C1760; C1894; 36415